=== PATIENT | female | born 1940 | race Caucasian/White ===

== ENCOUNTER → 2017-09-28 13:47 | Outpatient (REF) | payer MEDICARE, SELFPAY | LOC: LAB 13:47 | PROVIDERS: Visit Provider Emergency Medicine | DX: N39.0 Urinary tract infection, site not specified (principal) | CPT/HCPCS: 87086 ==

== ENCOUNTER → 2017-10-29 10:16 | Outpatient (CLI) | payer MEDICARE, SELFPAY | PROVIDERS: Visit Provider Emergency Medicine | DX: R53.83 Other fatigue (principal) | CPT/HCPCS: 87086 ==

== ENCOUNTER → 2017-11-16 14:18 | Outpatient (REF) | payer MEDICARE, SELFPAY | LOC: LAB 14:18 | PROVIDERS: Visit Provider Physician Assistant | DX: R30.0 Dysuria (principal) | CPT/HCPCS: 87086 ==

== ENCOUNTER → 2017-11-19 11:07 | Outpatient (CLI) | payer MEDICARE, SELFPAY | PROVIDERS: Visit Provider Nurse Practitioner Family | DX: R30.0 Dysuria (principal) | CPT/HCPCS: 87086 ==

== ENCOUNTER → 2017-11-30 07:24 | Outpatient (CLI) | payer MEDICARE, SELFPAY ==
--- NOTE | 2017-11-30 07:27 | XR_ITS ---
XR chest 2V HISTORY: ITS.REASON: Cough, night sweats ORDERING PHYSICIAN: CELINE Flores PATIENT AGE: 77 years COMPARISON: 07/07/2016 FINDINGS: The cardiomediastinal silhouette and pulmonary vascularity are within normal limits. There is some patchy density present in the right lower lobe consistent with right lower lobe pneumonia. There is also some patchy density in the right midlung which may be due to small area of infiltrate. The left lung has an unremarkable appearance. No acute bony anomalies. IMPRESSION: Right mid lung and right lower lobe pneumonia
[2017-11-30 08:43] LABS: Basophils % 0.4 % (0.1-2.0); Eosinophils # 0.2 K/mm3 (0.0-0.4); Eosinophils % 2.8 % (0.1-12.0); Hematocrit 42.1 % (37.0-47.0); Hemoglobin 13.1 g/dL (12.2-16.2); Lymphocytes # 2.5 K/mm3 (0.7-4.5); Lymphocytes % 31.9 K/mm3 (10-50); Mean Corpuscular HGB Conc 31.1 g/dL (31.8-35.4); Mean Corpuscular Hemoglobin 28.9 pg (27.0-31.2); Mean Corpuscular Volume 92.8 fl (81-99); Monocytes # 0.5 K/mm3 (0.1-1.0); Neutrophils # 4.7 K/mm3 (1.8-7.8); Platelet Count 533 K/mm3 (142-424); Red Blood Count 4.54 M/mm3 (4.20-5.40); Red Cell Distribution Width 13.2 % (11.5-17.5); White Blood Count 7.9 K/mm3 (4.8-10.8)
[2017-11-30 09:11] LABS: Alanine Aminotransferase 15 U/L (12-78); Albumin Level 3.5 gm/dL (3.4-5.0); Albumin/Globulin Ratio 0.9 (1.1-1.8); Alkaline Phosphatase 84 U/L (46-116); Anion Gap 14.6 mEq/L (5-15); Aspartate Amino Transferase 14 U/L (15-37); Bilirubin,Total 0.3 mg/dL (0.2-1.0); Blood Urea Nitrogen 16 mg/dL (7-18); C-Reactive Protein 1.2 mg/L (0.0-0.9); Calcium 9.5 mg/dL (8.5-10.1); Carbon Dioxide 29 mmol/L (21.0-32.0); Chloride 104 mmol/L (98-107); Chol/HDL Ratio 4.3 (1-3.5); Cholesterol 180 mg/dL (140-200); Creatinine,Serum 0.73 mg/dL (0.55-1.02); Estimated Glomerular Filt Rate 78 ml/min (>60); Free T4 (Free Thyroxine) 0.95 ng/dl (0.76-1.46); GFR (African American) 94 ML/MIN (>60); Globulin 4.1 gm/dl (1.3-3.2); HDL Cholesterol 42 mg/dL (29-89); LDL Cholesterol 107 mg/dL (0-130); Potassium 4.6 mmoL/L (3.5-5.1); Sodium 143 mmol/L (136-145); Thyroid Stimulating Hormone 4.57 uIU/ml (0.358-3.740); Total Protein,Serum 7.6 gm/dL (6.4-8.2); Triglycerides 153 mg/dL (30-200); VLDL Cholesterol 31 mg/dL (0-40)
[2017-11-30 09:17] LABS: Glucose 112 mg/dL (74-106)
[2017-11-30 09:57] LABS: Erythrocyte Sedimentation Rate > 120 mm/hr (0-30)
== END ==
PROVIDERS: PCP Physician Assistant; Visit Provider Physician Assistant
DX: R05 Cough (principal); R61 Generalized hyperhidrosis; Z79.899 Other long term (current) drug therapy
CPT/HCPCS: 36415; 71046; 80053; 80061; 84439; 84443; 85025; 85651; 86140

== ENCOUNTER → 2017-11-30 16:08 | Outpatient (CLI) | payer MEDICARE, SELFPAY ==
[2017-12-02 16:58] LABS: Peripheral Smear Review Scanned Result
== END ==
PROVIDERS: Visit Provider Physician Assistant
DX: R05 Cough (principal)

== ENCOUNTER → 2017-12-21 07:08 | Outpatient (CLI) | payer MEDICARE, SELFPAY ==
--- NOTE | 2017-12-21 07:11 | XR_ITS ---
XR chest 2V HISTORY: Cough ITS.REASON: f/u pneumonia ORDERING PHYSICIAN: CELINE Flores PATIENT AGE: 77 years COMPARISON: PA and lateral chest 11/30/2017 FINDINGS: The cardiomediastinal silhouette and pulmonary vascularity are within normal limits. The minimal pneumonic infiltrate seen in the right perihilar region and right lower lobe on the previous study have resolved. Both lung culp are clear to this time. There is no pleural fluid. IMPRESSION: Negative chest, no acute finding
[2017-12-21 07:43] LABS: Basophils % 0.5 % (0.1-2.0); Eosinophils # 0.2 K/mm3 (0.0-0.4); Eosinophils % 3.7 % (0.1-12.0); Hematocrit 41.9 % (37.0-47.0); Hemoglobin 13.5 g/dL (12.2-16.2); Lymphocytes # 2.2 K/mm3 (0.7-4.5); Lymphocytes % 35.6 K/mm3 (10-50); Mean Corpuscular HGB Conc 32.2 g/dL (31.8-35.4); Mean Corpuscular Hemoglobin 30.1 pg (27.0-31.2); Mean Corpuscular Volume 93.5 fl (81-99); Mean Platelet Volume 6.8 fl (7.4-10.4); Monocytes # 0.5 K/mm3 (0.1-1.0); Monocytes % 8.7 % (1.7-9.3); Neutrophils # 3.2 K/mm3 (1.8-7.8); Neutrophils % 51.4 % (37.0-80.0); Platelet Count 284 K/mm3 (142-424); Red Blood Count 4.48 M/mm3 (4.20-5.40); Red Cell Distribution Width 14.4 % (11.5-17.5); White Blood Count 6.2 K/mm3 (4.8-10.8)
[2017-12-21 08:08] LABS: Alanine Aminotransferase 15 U/L (12-78); Albumin Level 3.9 gm/dL (3.4-5.0); Albumin/Globulin Ratio 1.1 (1.1-1.8); Alkaline Phosphatase 85 U/L (46-116); Anion Gap 13.4 mEq/L (5-15); Aspartate Amino Transferase 8 U/L (15-37); Bilirubin,Total 0.5 mg/dL (0.2-1.0); Blood Urea Nitrogen 15 mg/dL (7-18); Calcium 9.5 mg/dL (8.5-10.1); Carbon Dioxide 29 mmol/L (21.0-32.0); Chloride 107 mmol/L (98-107); Creatinine,Serum 0.71 mg/dL (0.55-1.02); Estimated Glomerular Filt Rate 80 ml/min (>60); GFR (African American) 97 ML/MIN (>60); Globulin 3.5 gm/dl (1.3-3.2); Potassium 4.4 mmoL/L (3.5-5.1); Sodium 145 mmol/L (136-145); Total Protein,Serum 7.4 gm/dL (6.4-8.2)
[2017-12-21 08:21] LABS: C-Reactive Protein < 0.2 mg/L (0.0-0.9)
[2017-12-21 08:22] LABS: Glucose 93 mg/dL (74-106)
[2017-12-21 08:37] LABS: Erythrocyte Sedimentation Rate 48 mm/hr (0-30)
== END ==
PROVIDERS: PCP Physician Assistant; Visit Provider Physician Assistant
DX: R70.0 Elevated erythrocyte sedimentation rate (principal); J18.9 Pneumonia, unspecified organism
CPT/HCPCS: 36415; 71046; 80053; 85025; 85651; 86140

== ENCOUNTER → 2018-01-14 06:11 | Outpatient (CLI) | payer MEDICARE, SELFPAY ==
--- NOTE | 2018-01-14 06:12 | CA_ITS ---
PROCEDURE: 2-D M-mode and color Doppler study INDICATIONS FOR THE TEST: Chest pain COPD+ Heart Murmur Tobacco Smokingex Palpitations Fatigue+ Syncope+ Edema Hypertension+Diabetes Mellitus Rheumatic Fever SOB+CAMPBELL+Obesity Hyperlipidemia+ Family History HD+ Additional History dizziness PATIENT INFORMATION HEIGHT: 63 WEIGHT: 183 GENDER: Female B/P: 183/80 2-D/M-MODE INTERPRETATION: 2-D MEASUREMENTS OBSERVED VALUES IN CMS Right Ventricular Dimension (RVDd) 2.1 Interventricular Septum (Thickness)(IVsd) 1.1 Left Ventricular Internal Dimensions(LVIDd) 4.7 Left Ventricular Posterior Wall (Thickness)(LVPWd) 1.0 Aortic Root 2.7 Aortic Cusp Separation 2.5 Left Atrial Dimensions (LAD) 3.6 2D 1. Left atrium is mildly enlarged, left ventricle is normal size, mild concentric left ventricular hypertrophy, visually estimated ejection fraction 55% with no obvious regional wall motion abnormality. 2. The right atrium and right ventricle are normal size and contractility. 3. The aortic valve is minimally thickened and fibrosed. 4. The mitral and tricuspid valve are grossly normal. 5. The pulmonic valve is poorly visualized. 6. No significant pericardial effusion noted. DOPPLER INTERROGATION: Doppler interrogation of the aortic, mitral and tricuspid valvular presence of mild mitral and tricuspid regurgitation, tricuspid regurgitant jet velocity is insufficient for calculation of the right ventricular systolic pressure, grade 1 diastolic dysfunction seen with tissue Doppler evidence of raised left atrial pressure. CONCLUSION: 1. Mildly enlarged left atrium, normal left ventricular size, mild concentric left ventricular hypertrophy, visually estimated ejection fraction of 55% with no obvious regional wall motion abnormality, grade 1 diastolic dysfunction seen with tissue Doppler evidence of raised left atrial pressure. 2. Mild mitral and tricuspid regurgitation 3. No significant pericardial effusion noted.
--- NOTE | 2018-01-14 06:12 | CT_ITS ---
CT chest wo con HISTORY: Chest pain, syncope, shortness of air ITS.REASON: . ORDERING PHYSICIAN: Hector Beavers MD PATIENT AGE: 77 years COMPARISON: None Technique: Axial images obtained with sagittal and coronal reformats. All CT scans at the facility use one or more dose reduction, viz: automated exposure control, ma/kV adjustment per patient size (including targeted exams where dose is matched to indication, i.e. head), or iterative reconstruction technique. FINDINGS: There is diffuse coronary artery calcification. There is only minimal thickening of the pericardium. Normal heart size. No evidence of aortic aneurysm. Calcific plaque involves the aortic arch. No mediastinal or hilar mass or adenopathy. There is mild coarsening of bronchovascular markings with several small subpleural opacities which are nonspecific. A small patchy subpleural areas of groundglass density is present in the right upper lobe anterolaterally. Small blebs are present in the right upper lobe. There is some patchy groundglass density in the right lower lobe laterally and posteriorly. There is some mild thickening of interlobular septa the lung bases with minimal prominence of the interstitium. Mild biapical fibronodular changes on the left. No suspicious pulmonary nodules. No effusions. Small blebs are also present in the left lung base Upper abdominal images shows an 8 mm isodensity right hepatic lobe laterally and a 4 mm isodensity right hepatic lobe anteriorly. No acute bony anomalies. IMPRESSION: 1. Coarsened bronchovascular markings with mild interlobular septal thickening in the lung bases and scattered patchy groundglass densities. These findings may be seen with chronic interstitial pneumonitis for which the differential diagnosis is vast. 2. Coronary artery disease.
--- NOTE | 2018-01-14 06:12 | CI_ITS ---
Cerebrovascular Exam IMPRESSIONS 1. The bilateral vertebral arteries are patent with normal antegrade flow. 2. Study suggests less than 20% stenosis involving the right internal carotid artery. 3. Study suggests less than 20% stenosis involving the left internal carotid artery. History: A bruit of the left carotid artery. A bruit of the right carotid artery. Risk factors: Hypertension. Hyperlipidemia. Carotid duplex study. Complete study and Doppler flow study including spectral analysis, color and zarco scale imaging. Location: Vascular laboratory. Patient status: Outpatient. Tables: Arterial flow: + +--------+--------+ Location V sys V ed + +--------+--------+ Right CCA - proximal 76.1cm/s 17.5cm/s + +--------+--------+ Right CCA - distal 71.9cm/s 19.6cm/s + +--------+--------+ Right ECA 92.9cm/s -------- + +--------+--------+ Right ICA - proximal 50.1cm/s 15.2cm/s + +--------+--------+ Right ICA - mid 89.9cm/s 33.3cm/s + +--------+--------+ Right ICA - distal 67.4cm/s 24.4cm/s + +--------+--------+ Right vertebral 41.7cm/s -------- + +--------+--------+ Left CCA - proximal 95.1cm/s 18.9cm/s + +--------+--------+ Left CCA - distal 68.4cm/s 16.5cm/s + +--------+--------+ Left ECA 129cm/s -------- + +--------+--------+ Left ICA - proximal 47.1cm/s 13.2cm/s + +--------+--------+ Left ICA - mid 67.2cm/s 20.5cm/s + +--------+--------+ Left ICA - distal 93.2cm/s 27.9cm/s + +--------+--------+ Left vertebral 43.2cm/s -------- + +--------+--------+ Velocity ratios: + + + + + + Right, V sys Right, V ed Left, V sys Left, V ed + + + + + + Max ICA/dist CCA 1.25 1.7 1.36 1.69 + + + + + + (Report amended ) Electronically signed by: Emmanuel Kiser [id number]
--- NOTE | 2018-01-14 06:12 | NM_ITS ---
History and Indications: Hypertension, hyperlipidemia, family history, shortness of breath syncope and fatigue Procedure: Patient received a 0.4 mg of Lexiscan, resting heart rate was 87 bpm resting blood pressure 161/74, with Lexiscan maximum heart rate achieved was 1 15 bpm which is less than 85% of the maximum predicted heart rate and a blood pressure was 186/72. With Lexiscan patient complained of shortness of breath requiring intravenous Aminophyllin to reverse symptoms. Electrocardiogram: Resting electrocardiogram showed sinus rhythm, with Lexiscan less than 1.[address] segment depression noted from the baseline EKG. The EKG portion of the Lexiscan Myoview is nondiagnostic. Cardiac stress and resting SPECT images: Cardiac stress and rest SPECT images were obtained using technetium 99 Myoview 31.5 mCi at stress and 10.3 mCi at rest. Gated SPECT further analysis of segmental wall motion and calculation of the ejection fraction also done. Cardiac stress and resting SPECT images show uniform myocardial activity, computer derived ejection fraction is over 65% with no obvious regional wall motion abnormality, right ventricle is normal size and contractility. Conclusion: 1. The EKG portion of the Lexiscan Myoview is nondiagnostic. 2. No obvious scintigraphic evidence of reversible ischemia seen, computer derived ejection fraction is over 65% with no obvious regional wall motion abnormality, right ventricle is normal size and contractility. 3. Normal Lexiscan Myoview study.
--- NOTE | 2018-01-14 10:38 | HMH.ITSHM ---
lisinopril asa bisoprolol levothyroxine rosuvastatin
== END ==
PROVIDERS: Family Provider Emergency Medicine; PCP Physician Assistant; Visit Provider Internal Medicine Cardiovascular Disease
DX: R55 Syncope and collapse (principal); R94.31 Abnormal electrocardiogram [ECG] [EKG]; R42 Dizziness and giddiness; R06.09 Other forms of dyspnea; R00.0 Tachycardia, unspecified; I10 Essential (primary) hypertension
CPT/HCPCS: 71250; 78452; 93017; 93306; 93880; A9502; J2785

== ENCOUNTER → 2018-01-21 07:31 | Outpatient (CLI) | payer MEDICARE, SELFPAY ==
[2018-01-21 07:57] LABS: Basophils % 0.4 % (0.1-2.0); Eosinophils # 0.2 K/mm3 (0.0-0.4); Eosinophils % 3.8 % (0.1-12.0); Hemoglobin 12.8 g/dL (12.2-16.2); Lymphocytes # 1.8 K/mm3 (0.7-4.5); Lymphocytes % 34.6 K/mm3 (10-50); Mean Corpuscular HGB Conc 32.1 g/dL (31.8-35.4); Mean Corpuscular Hemoglobin 29.7 pg (27.0-31.2); Mean Corpuscular Volume 92.5 fl (81-99); Mean Platelet Volume 7.2 fl (7.4-10.4); Monocytes # 0.5 K/mm3 (0.1-1.0); Monocytes % 9.8 % (1.7-9.3); Neutrophils # 2.7 K/mm3 (1.8-7.8); Neutrophils % 51.5 % (37.0-80.0); Platelet Count 307 K/mm3 (142-424); Red Blood Count 4.32 M/mm3 (4.20-5.40); Red Cell Distribution Width 14.2 % (11.5-17.5); White Blood Count 5.3 K/mm3 (4.8-10.8)
[2018-01-21 08:15] LABS: C-Reactive Protein 0.4 mg/L (0.0-0.9)
[2018-01-21 12:32] LABS: Erythrocyte Sedimentation Rate 54 mm/hr (0-30)
== END ==
PROVIDERS: Physician Assistant; PCP Emergency Medicine; Visit Provider Emergency Medicine
DX: R70.0 Elevated erythrocyte sedimentation rate (principal)
CPT/HCPCS: 36415; 85025; 85651; 86140

== ENCOUNTER 2018-05-12 10:12 | Outpatient (RCR) | payer MEDICARE, SELFPAY | END 2018-08-24 08:54 | disposition home or self-care (01) | LOC: PT 10:12 | PROVIDERS: Visit Provider Internal Medicine | DX: Z95.5 Presence of coronary angioplasty implant and graft (principal) | CPT/HCPCS: 93798 ==

== ENCOUNTER → 2018-05-26 15:04 | Outpatient (CLI) | payer MEDICARE, SELFPAY | PROVIDERS: PCP Emergency Medicine; Visit Provider Urology | DX: M79.601 Pain in right arm (principal); E03.9 Hypothyroidism, unspecified; E78.5 Hyperlipidemia, unspecified; I25.10 Atherosclerotic heart disease of native coronary artery without angina pectoris; I51.9 Heart disease, unspecified; I65.29 Occlusion and stenosis of unspecified carotid artery; J44.9 Chronic obstructive pulmonary disease, unspecified; R06.00 Dyspnea, unspecified; R42 Dizziness and giddiness; R94.31 Abnormal electrocardiogram [ECG] [EKG]; I77.1 Stricture of artery | CPT/HCPCS: 93931 ==

== ENCOUNTER → 2018-06-09 06:55 | Outpatient (CLI) | payer MEDICARE, SELFPAY ==
[2018-06-09 07:28] LABS: Alanine Aminotransferase 15 U/L (12-78); Albumin Level 3.7 gm/dL (3.4-5.0); Alkaline Phosphatase 67 U/L (46-116); Aspartate Amino Transferase 16 U/L (15-37); Bilirubin,Direct 0.2 mg/dL (0.0-0.2); Bilirubin,Indirect 0.4 mg/dL (0.0-0.9); Bilirubin,Total 0.6 mg/dL (0.2-1.0); Chol/HDL Ratio 2.9 (1-3.5); Cholesterol 126 mg/dL (140-200); HDL Cholesterol 44 mg/dL (29-89); LDL Cholesterol 48 mg/dL (0-130); Total Protein,Serum 7.7 gm/dL (6.4-8.2); Triglycerides 172 mg/dL (30-200); VLDL Cholesterol 34 mg/dL (0-40)
== END ==
PROVIDERS: PCP Emergency Medicine; Visit Provider Internal Medicine Cardiovascular Disease
DX: I65.29 Occlusion and stenosis of unspecified carotid artery (principal); E78.5 Hyperlipidemia, unspecified; I25.118 Atherosclerotic heart disease of native coronary artery with other forms of angina pectoris
CPT/HCPCS: 36415; 80061; 80076

== ENCOUNTER → 2018-09-14 08:30 | Outpatient (CLI) | payer MEDICARE, SELFPAY ==
[2018-09-14 10:09] LABS: Anion Gap 11.4 mEq/L (5-15); Blood Urea Nitrogen 20 mg/dL (7-18); Calcium 9.6 mg/dL (8.5-10.1); Carbon Dioxide 29 mmol/L (21.0-32.0); Chloride 105 mmol/L (98-107); Creatinine,Serum 0.75 mg/dL (0.55-1.02); Estimated Glomerular Filt Rate 75 ml/min (>60); GFR (African American) 91 ML/MIN (>60); Glucose 103 mg/dL (74-106); Potassium 4.4 mmoL/L (3.5-5.1); Sodium 141 mmol/L (136-145)
== END ==
PROVIDERS: Visit Provider Internal Medicine Cardiovascular Disease
DX: E78.5 Hyperlipidemia, unspecified (principal); I10 Essential (primary) hypertension; I25.118 Atherosclerotic heart disease of native coronary artery with other forms of angina pectoris; I51.89 Other ill-defined heart diseases; I65.29 Occlusion and stenosis of unspecified carotid artery; R06.09 Other forms of dyspnea
CPT/HCPCS: 36415; 80048

== ENCOUNTER → 2018-11-24 10:21 | Outpatient (CLI) | payer MEDICARE, SELFPAY ==
--- NOTE | 2018-11-24 10:22 | MM_ITS ---
MM Dig screening mamm BI w/CAD ORDERING PHYSICIAN : Linwood Payton APRN PATIENT AGE: 78 years GENDER: Female COMPARISON: December 2010, September 2015, INDICATION: ITS.Routine Screening mammogram. No hormones. No new complaints. Family history.: Sibling sister with breast cancer age 60 postmenopausal TECHNIQUE: Standard CC and MLO images were obtained. R2 CAD reviewed. Additional nipple profile cc views bilateral FINDINGS: ...... . Lower density breast with Minimal residual fibroglandular elements. Generalized fatty replacement . No dominant mass nor suspicious calcifications, either breast. Similar appearance and architecture to previous studies. No significant new findings. Bilateral follow-up one year recommended. All with numerous follicles Partially inverted nipples bilaterally again noted Minimal vascular calcifications bilaterally again noted. Of No concern IMPRESSION: ......... Stable bilateral mammogram No areas of concern.. Moderate fatty replacement bilateral . Bilateral follow-up one year BI-RADS Category: 1 Negative RECOMMENDED FOLLOW-UP: 1YR 1 YEAR FOLLOW-UP (A letter has been sent to the patient regarding results of the study.)
== END ==
PROVIDERS: PCP Emergency Medicine; Visit Provider Nurse Practitioner Family
DX: Z12.31 Encounter for screening mammogram for malignant neoplasm of breast (principal)
CPT/HCPCS: 77067

== ENCOUNTER → 2019-02-14 09:49 | Outpatient (POV) | payer MEDICARE, SELFPAY | PROVIDERS: Visit Provider Otolaryngology | DX: Z00.00 Encounter for general adult medical examination without abnormal findings (principal) ==

== ENCOUNTER → 2019-10-05 10:37 | Outpatient (CLI) | payer MEDICARE, SELFPAY ==
[2019-10-05 13:14] LABS: Chloride 104 mmol/L (98-107); Potassium 4.3 mmoL/L (3.5-5.1); Sodium 140 mmol/L (136-145)
[2019-10-05 13:17] LABS: Alanine Aminotransferase 12 U/L (12-78); Albumin Level 4.3 g/dl (3.5-5.0); Alkaline Phosphatase 60 U/L (38-126); Anion Gap 13.3 mEq/L (5-15); Aspartate Amino Transferase 23 U/L (14-36); Bilirubin,Indirect 0.4 mg/dL (0.0-0.9); Bilirubin,Total 0.4 mg/dl (0.2-1.3); Bilirubin,Unconjugated 0.6 mg/dL (0.0-1.1); Blood Urea Nitrogen 15 mg/dl (7-17); Calcium 9.9 mg/dl (8.4-10.2); Carbon Dioxide 27 mmol/L (22.0-30.0); Cholesterol 129 mg/dl (140-200); Estimated Glomerular Filt Rate 97 ml/min (>60); GFR (African American) 117 ML/MIN (>60); Glucose 121 mg/dl (74-100); Triglycerides 288 mg/dl (30-150); VLDL Cholesterol 58 mg/dL (0-40)
[2019-10-05 13:18] LABS: Chol/HDL Ratio 2.6 (1-3.5); HDL Cholesterol 49 mg/dl (40-60)
[2019-10-05 13:26] LABS: NT Pro Brain Natriuretic Pep. 77.6 pg/mL (0-450)
[2019-10-05 13:29] LABS: Direct LDL Cholesterol 67.49 mg/dL (100-129)
== END ==
PROVIDERS: Visit Provider Internal Medicine Cardiovascular Disease
DX: R06.00 Dyspnea, unspecified; E78.5 Hyperlipidemia, unspecified; I10 Essential (primary) hypertension; I25.10 Atherosclerotic heart disease of native coronary artery without angina pectoris; I65.29 Occlusion and stenosis of unspecified carotid artery; R06.83 Snoring; R40.0 Somnolence
CPT/HCPCS: 36415; 80048; 80061; 80076; 83880

== ENCOUNTER → 2019-10-12 13:27 | Outpatient (CLI) | payer MEDICARE, SELFPAY | PROVIDERS: PCP Emergency Medicine; Visit Provider Internal Medicine Cardiovascular Disease | DX: G47.30 Sleep apnea, unspecified (principal); R06.00 Dyspnea, unspecified; R06.83 Snoring; R40.0 Somnolence | CPT/HCPCS: G0399 ==

== ENCOUNTER → 2019-10-20 07:02 | Outpatient (CLI) | payer MEDICARE, SELFPAY ==
--- NOTE | 2019-10-20 07:03 | CA_ITS ---
APPROVED REPORT EXAM: Comprehensive 2D, Doppler, and color-flow Echocardiogram Flaking Roll Operator: Chayito Peterson CRT Ht: 5 ft 1 in Wt: 197lbs BSA: 1.88 BP: 160/60 mmHg Indications: COPD, FATIGUE, SYNCOPE, HTN, HLD, CAD,SOB 2D Dimensions LVOT 1.69 cm (M/F) 1.5-2.5 M-Mode Dimensions RVDd 2.32 cm (0.9-2.6) LVDd 4.37 cm (3.5-5.7) LVDs 3.38 cm (3.5-5.7) IVSd 1.56 cm (0.6-1.1) PWd 0.72 cm (0.6-1.1) EF (Teich) 45.80% FS 22.70% EDV (Teich) 86.30 mL ESV (Teich) 46.80 mL LV Diastology E/A Ratio 0.67 Mitral Valve MV A Velocity 62.00 (40-130 cm/s) Left Ventricle Left atrium is mildly enlarged, left ventricle is normal size, mild concentric left ventricular hypertrophy, visually estimated ejection fraction 55% with no regional wall motion abnormality, grade 1 diastolic dysfunction seen without tissue Doppler evidence of raise left atrial pressure. Right Ventricle Right atrium and right ventricular mildly enlarged with normal contractility. Aortic Valve Aortic valve is minimally thickened and fibrosed. There is no aortic stenosis aortic insufficiency. Mitral Valve Mitral valve is grossly normal, there is no mitral stenosis or mitral regurgitation. Tricuspid Valve Tricuspid valve is grossly normal, there is mild tricuspid regurgitation, tricuspid regurgitation jet velocity is inadequate for calculation of the right ventricular systolic pressure. Pulmonic Valve Pulmonic valve is poorly visualized. Great Vessels Aortic root is normal size. Pericardium No significant pericardial effusion noted. Conclusion 1. Mild biatrial enlargement, normal left ventricular size, mild concentric left ventricular hypertrophy, visually estimated ejection fraction 55% with no regional wall motion abnormality, grade 1 diastolic dysfunction seen without tissue Doppler evidence of raise left atrial pressure. 2. Mildly enlarged right ventricle with normal contractility. 3. Mild mitral and tricuspid regurgitation. 4. No significant pericardial effusion noted. Electronically signed by : Hector Beavers, 10/20/2019 13:00:46
--- NOTE | 2019-10-20 07:03 | CA_ITS ---
APPROVED REPORT Exam: Pharmacologic Technologist: Gracia Pruitt, Ht: 5 ft 1 in Wt: 189 lbs BSA: 1.84 m2 Indications: SOA/HTN/CAD Medical History Medications: Lisinopril,,,,, Levothyroxine,,,,, Isosorbide,,,,, Aspirin,,,,, Metoprolol,,,,, FluTICASONE,,,,, SpirOnolactone,,,,, RoSUVASTATIN,,,,, Clobetasol,,,,, Clobetasol,,,,, MonONITRATE,,,,, Stress Test Details Test: LEXISCAN Reason for pharmacologic stress test: physical limitation. HR Resting HR: 106 bpm Max Heart Rate (APMHR): 142 bpm Max HR Achieved: 135 bpm Target HR (85% APMHR): 120 bpm % of APMHR: 95 BP Resting BP: 158/68 mmHg Max BP: 181/62 mmHg ECG Clinical Reason for Termination: Completed Protocol Exercise duration: 04:09 min Highest Stage Achieved: Stress ECG Conclusion no CP / SOA no arrhythmias <1.5mm ST segment changes non-diagnostic Test Summary RECOVERY 03:00 . . 116 . 181/ 62 . . Stage 1 01:00 . . 125 . . . . Stage 2 01:00 . . 131 . . . . Stage 3 01:00 . . 128 . 127/107 . . Stage 4 01:00 . . 124 . . . . Stage 4 01:09 . . 122 . . . Stop exercise at 04:09 RECOVERY 01:00 . . 115 . . . . RECOVERY 02:00 . . 117 . 180/ 70 . . RECOVERY 03:00 . . 116 . 181/ 62 . . RECOVERY 04:00 . . 114 . 181/ 62 . . RECOVERY 05:00 . . 0 . 181/ 62 . . RECOVERY 05:27 . . 0 . 181/ 62 . . Electronically signed by : Hector Beavers, 10/20/2019 11:52:12
--- NOTE | 2019-10-20 07:03 | NM_ITS ---
APPROVED REPORT Exam: Nuclear Stress Test Indication: HTN, D.M., HYPERLIPIDEMIA, FM HX., FATIGUE, ABN EKG Patient Location: Outpatient Stress Tech: Gracia Pruitt MT Tech:DAIJA Antonio RT (R)(N)(M) Ht: 5 ft 1 in Wt: 235 lbs Bra Size: 44DDD HR: 62 bpm BP: 131/75 mmHg BSA: 2.02 m2 BMI: 44.3 History: HTN, D.M., HYPERLIPIDEMIA, FM HX., FATIGUE, ABN EKG Procedure: Patient received a 0.4 mg of intravenous Lexiscan, resting heart rate 62 bpm, resting blood pressure 131/75 mmHg, with Lexiscan maximum heart rate achived was 89 bpm which is Less than 85 % of the maximum predicted heart rate and blood pressure was 116/69 mmHg. With Lexiscan, patient denied any complaint of chest pain. Electrocardiogram Resting electrocardiogram showed sinus rhythm, with Lexiscan there is less than 1.[address] segment depression noted from the baseline EKG. The EKG portion of the Lexiscan Myoview is nondiagnostic. Cardiac Stress and Resting SPECT Images: Cardiac Stress and Resting SPECT images were obtained using technetium 99m Myoview 30.9 mCi stress and 10.37 mCi at rest. Gated SPECT with analysis of segmental wall motion and calculation of the ejection fraction also done. Cardiac stress and resting SPECT images show decrease tracer activity in the inferolateral wall which improves on the resting images suggestive of reversible ischemia, there is transient ischemic dilatation of the left ventricle seen, raising the concerns for multivessel coronary artery disease. Computer derived ejection fraction is over 65% with no regional wall motion abnormality, right ventricle is normal size and contractility. Conclusion: 1. The EKG portion of the Lexiscan Myoview is nondiagnostic. 2. Scintigraphic evidence of mild reversible ischemia involving the inferolateral wall, there is transient ischemic dilatation of the left ventricle seen raising the concerns for presence of multivessel coronary artery disease. Computer derived ejection fraction is over 65% with no regional wall motion abnormality, right ventricle is normal size and contractility. 3. Abnormal Lexiscan Myoview study. Electronically signed by : Hector Beavers, 10/20/2019 11:55:08
== END ==
PROVIDERS: PCP Emergency Medicine; Visit Provider Nurse Practitioner Family
DX: E78.5 Hyperlipidemia, unspecified (principal); I10 Essential (primary) hypertension; I25.10 Atherosclerotic heart disease of native coronary artery without angina pectoris; I65.29 Occlusion and stenosis of unspecified carotid artery; R06.00 Dyspnea, unspecified; R06.83 Snoring; R40.0 Somnolence; R06.02 Shortness of breath
CPT/HCPCS: 78452; 93017; 93306; A9502; J2785

== ENCOUNTER 2019-10-30 08:36 | Day surgery (SDC) | payer MEDICARE, SELFPAY ==
[2019-10-30] VITALS (12 sets, daily range): BP systolic 84–152; BP diastolic 35–67; PULSE 79–98; RESP 16–20; TEMP 36.9; O2SAT 93–96; BMI 34.5
[2019-10-30 09:29] LABS: Basophils % 0.6 % (0.1-2.0); Eosinophils # 0.2 K/mm3 (0.0-0.4); Eosinophils % 2.9 % (0.1-12.0); Lymphocytes # 1.6 K/mm3 (0.7-4.5); Lymphocytes % 25.2 % (10-50); Mean Corpuscular HGB Conc 34.3 g/dL (31.8-35.4); Mean Corpuscular Hemoglobin 31.8 pg (27.0-31.2); Mean Corpuscular Volume 92.7 fl (81-99); Mean Platelet Volume 7.4 fl (7.4-10.4); Monocytes # 0.5 K/mm3 (0.1-1.0); Monocytes % 7.4 % (1.7-9.3); Neutrophils % 63.8 % (37.0-80.0); Platelet Count 258 K/mm3 (142-424); Red Cell Distribution Width 14.1 % (11.5-17.5); White Blood Count 6.2 K/mm3 (4.8-10.8)
[2019-10-30 09:35] LABS: Blood Urea Nitrogen 16 mg/dl (7-17); Calcium 10.2 mg/dl (8.4-10.2); Carbon Dioxide 24 mmol/L (22.0-30.0); Chloride 104 mmol/L (98-107); Creatinine Clearance Estimated 65 mL/min (50-200); Estimated Glomerular Filt Rate 97 ml/min (>60); GFR (African American) 117 ML/MIN (>60); Glucose 127 mg/dl (74-100); Sodium 138 mmol/L (136-145)
--- NOTE | 2019-10-30 11:00 | IR_ITS ---
APPROVED REPORT Patient Location: Outpatient Project Management Professor: DAIJA Martin RT (R) PROCEDURES Right heart catheterization Left heart catheterization Left ventriculogram Selective coronary angiogram Drug-eluting stent deployment in the mid left main artery extending into the proximal dominant circumflex artery INDICATION Pulmonary hypertension, High risk abnormal Myoview, Angina pectoris class III and IV, Coronary artery disease Informed consent was obtained prior to the procedure. COMPLICATIONS NONE Estimated Blood Loss: LESS THAN 10 ML TECHNIQUE One percent lidocaine was used to anesthetize the right anterior aspect of the right wrist. The right radial artery was accessed via the Seldinger technique and a 6 [place] hydrophilic sheath was placed in the right radial artery. Following this one percent lidocaine was used to anesthetize the right anterior aspect of the right neck. The right internal jugular vein was accessed via the Seldinger technique and a 7 [place] sheath was placed in the right internal jugular vein. Following this an arterial cocktail was administered using 5000U heparin, 2.5 mg verapamil, 1mg Lidocaine and 800mcg nitroglycerin into the right radial sheath. A trap catheter was used to perform left heart catheterization left ventriculogram and selective coronary angiography while a [place]-Hugh catheter was used to perform right heart catheterization. Saturations were obtained in the pulmonary artery and right atrium. At the end the diagnostic angiogram therapeutic heparin was administered and and I Nicolle left guide catheter was used to intubate the left main artery. A Choice PT extra-support wire was placed in the circumflex artery where a 3.5 x 15 mm resolute tyson stent was placed in the left main artery extending into the proximal circumflex artery and deployed at 20 tiana. Excellent EARL-3 flow was present before and after the procedure. Because there was no angiographic encroachment upon the widely patent LAD it was decided not to instrument the LAD and not take a chance on having to place bifurcating stents in the LAD circumflex artery. Following the revascularization the right heart catheterization was then performed as described above. At the end of the procedure the sheath was removed good hemostasis was achieved using TR banding patient was transferred to the postop holding area in stable condition. ANGIOGRAPHIC RESULTS The left main artery Has a distal eccentric 40% stenosis The left anterior descending artery Has ostial proximal and mid vessel 10% luminal irregularities The circumflex artery Is a dominant vessel and has an ostial 90% stenosis which extends off the 30% distal left main stenosis the mid vessel has an additional eccentric 30% stenosis The right coronary artery Is a large codominant vessel and has diffuse 20% and distal 20% stenoses The NATARAJAN ventriculogram reveals Hyperdynamic 75% The left ventricular end-diastolic pressure 20 mmHg Right atrial pressure 10 mmHg Pulmonary artery pressure 32/20 mmHg Pulmonary artery occlusion pressure 20 mmHg Right atrial saturation 77% Pulmonary artery saturation 77% IMPRESSION Severe stenosis in the ostial dominant circumflex artery which extended off the distal left main stenosis as described above Successful stenting of the mid left main artery extending into the proximal dominant circumflex artery reducing the severe stenosis to 0% Mild pulmonary hypertension Moderately elevated left-sided filling pressures consistent with diastolic dysfunction and hyperdynamic left ventricle PLAN 1. Brilinta and aspirin 2. LDL less than 55 3. Cardiac rehabilitation 4. Patient is a hyperdynamic ventricle and needs ne
[2019-10-30 13:07] LABS: CATHL Activated Clotting Time 273 SEC (74-125); CATHL Arterial O2 SAT 77.8 % (90-100)
[2019-10-30 13:08] LABS: CATHL Venous O2 SAT 77.6 % (75-80)
--- NOTE | 2019-10-30 13:54 | HMH.PHACLD ---
Batool Mario has received discharge medication counseling on the following medications: PATIENT ALREADY PRESCRIBED ASPIRIN 81 MG DAILY, LISINOPRIL-HCTZ 20/25 MG DAILY, METOPROLOL SUCCINATE 100 MG DAILY, AND ROSUVASTATIN 20 MG HS. ADDING BRILINTA 90 MG BID TO THIS.
== END 2019-10-30 15:47 | disposition home or self-care (01) ==
LOC: CATHLAB 08:38
PROVIDERS: PCP Emergency Medicine; Visit Provider Internal Medicine
DX: E78.5 Hyperlipidemia, unspecified (principal); I11.0 Hypertensive heart disease with heart failure; I65.29 Occlusion and stenosis of unspecified carotid artery; R94.30 Abnormal result of cardiovascular function study, unspecified; I25.118 Atherosclerotic heart disease of native coronary artery with other forms of angina pectoris; I27.20 Pulmonary hypertension, unspecified; I50.30 Unspecified diastolic (congestive) heart failure; Z87.891 Personal history of nicotine dependence; Z88.8 Allergy status to other drugs, medicaments and biological substances
CPT/HCPCS: 80048; 82810; 85025; 85347; 92928; 93460; 99152; 99153; C1725; C1769; C1874; C1894; C9600; J1644; J2405; Q9967

== ENCOUNTER → 2019-11-10 08:09 | Outpatient (CLI) | payer MEDICARE, SELFPAY ==
[2019-11-10 08:50] LABS: Basophils % 0.3 % (0.1-2.0); Eosinophils # 0.2 K/mm3 (0.0-0.4); Eosinophils % 3.2 % (0.1-12.0); Hematocrit 38.8 % (37.0-47.0); Hemoglobin 13.1 g/dL (12.2-16.2); Lymphocytes # 1.8 K/mm3 (0.7-4.5); Lymphocytes % 26.7 % (10-50); Mean Corpuscular HGB Conc 33.8 g/dL (31.8-35.4); Mean Corpuscular Hemoglobin 31.5 pg (27.0-31.2); Mean Corpuscular Volume 93.3 fl (81-99); Mean Platelet Volume 7.4 fl (7.4-10.4); Monocytes # 0.5 K/mm3 (0.1-1.0); Neutrophils # 4.2 K/mm3 (1.8-7.8); Neutrophils % 62.8 % (37.0-80.0); Platelet Count 310 K/mm3 (142-424); Red Blood Count 4.15 M/mm3 (4.20-5.40); Red Cell Distribution Width 13.8 % (11.5-17.5); White Blood Count 6.8 K/mm3 (4.8-10.8)
[2019-11-10 09:17] LABS: Anion Gap 15.5 mEq/L (5-15); Blood Urea Nitrogen 16 mg/dl (7-17); Calcium 10.3 mg/dl (8.4-10.2); Carbon Dioxide 26 mmol/L (22.0-30.0); Chloride 101 mmol/L (98-107); Estimated Glomerular Filt Rate 81 ml/min (>60); GFR (African American) 98 ML/MIN (>60); Glucose 165 mg/dl (74-100); Potassium 4.5 mmoL/L (3.5-5.1); Sodium 138 mmol/L (136-145)
== END ==
PROVIDERS: Visit Provider Internal Medicine
DX: Z98.61 Coronary angioplasty status (principal); I25.10 Atherosclerotic heart disease of native coronary artery without angina pectoris
CPT/HCPCS: 36415; 80048; 85025

== ENCOUNTER 2019-11-21 12:46 | Outpatient (RCR) | payer MEDICARE, SELFPAY | END 2020-03-07 13:42 | disposition home or self-care (01) | LOC: PT 12:46 | PROVIDERS: Visit Provider Internal Medicine | DX: Z95.5 Presence of coronary angioplasty implant and graft (principal) | CPT/HCPCS: 93798 ==

== ENCOUNTER 2019-12-27 12:58 | Emergency (ER) | payer MEDICARE, SELFPAY ==
--- NOTE | 2019-12-27 13:11 | XR_ITS ---
PROCEDURE: XR RIBS LT MIN 3V W CXR1V CLINICAL INDICATION: pain Left rib pain. Injury to the left ribs. COMPARISON: CXR2V XR chest 2V from 12/21/2017 CXR2V XR chest 2V from 12/24/[address] chest wo con from 01/14/2018 CXR2V XR chest 2V from 02/28/2018 FINDINGS: There is no demonstrated consolidation, vascular congestion or pleural effusion of the visualized lungs. The heart appears top normal in size. Atherosclerotic calcification of the aortic knob. Mediastinum and hilar soft tissues are unremarkable. There is diffuse bony demineralization. Visualized left and right ribs appear intact. No acute bony pathology is evident. Several small calcified granulomata are seen in the spleen. IMPRESSION: No acute findings. Osteopenia. No rib fracture is identified. Dictated by: Giovanni Gupta 12/27/2019 13:40 Electronically signed by Giovanni Gupta in [place] 12/27/2019 13:40
[2019-12-27 13:17] VITALS: BP 128/68; PULSE 100; RESP 20; TEMP 36.7; O2SAT 96; BMI 36.2
--- NOTE | 2019-12-27 13:25 | HMH.EDUTC ---
[facility] – [place] Disposition Clinical Impression: Rib pain on left side Disposition: Home, Self-Care Condition on Discharge: Good Instructions: Muscle Strain, DI for Muscle Strain Additional Instructions: *Ibuprofen chasity 6 hours with meal as needed for pain/inflammation if your doctor has told you that you can take it *Not additional anti-inflammatory like motrin, aleve, advil with the above amount of ibuprofen. You can still take Tylenol every 4 hours as needed if you need something else for pain *Ice 20 minutes every 2 hours for the first 48 hours after the initial injury followed by moist heat every 20 minutes 3-4 times a day to affected area Over the counter Muscle rubs like biofreeze may help with pain and discomfort Over the counter Lidocaine patches applied to the area may help with pain and discomfort *Keep this area active, no movement leads to more stiffness, However take it easy and avoid heavy lifting pushing or pulling *Follow up with you family doctor if no improvement for further treatment and evaluation in the nest 48-72 hours Return if needed Straight to ER if any life threatening symptoms Referrals: Harinder Hearn MD [Primary Care Provider] - As needed Time of Disposition: 13:44 Medical Decision Making - Cory Inquiry Pt receiving controlled substance: No Cory was queried for this patient: No Vital Signs: 12/27/19 13:17 Temperature 98.1 F Temperature Source Oral Pulse Rate [Left Brachial] 100 H Respiratory Rate 20 Blood Pressure [Left Arm] 128/68 Blood Pressure Mean [Left Arm] 88 Blood Pressure Source [Left Arm] Automatic Cuff Blood Pressure Position [Left Arm] Sitting 02 Sat by Pulse Oximetry 96 Oxygen Delivery Method Room Air Orders (Tests/Meds): ORDERS Category Date Time Status XR ribs LT min 3V w CXR1V Stat Exams 12/27/19 13:11 Taken - Radiology Data #1 Image(s): Chest, Other (left ribs) Image Reviewed: Yes I reviewed the patient's radiology image w/the ED provider Preliminary Findings: No Fracture Seen [facility] – [place] HPI - General Stated complaint: left rib cage pain Time Seen by Provider: 12/27/19 13:25 Mode of Arrival: Ambulatory Source of Information: Patient Limitations: No Limitations Description of Symptoms (Recalled from Triage Doc. by RN): PATIENT STATES THAT APPROX 1.5 WEEKS AGO SHE LEANED OVER A CHAIR WHILE SITTING AND INJURED LEFT RIBS. DENIES ANY SOA HEENT Symptoms (Recalled from RN notes): No Resp Symptoms (Recalled from RN notes): No Skin Symptoms (Recalled from RN notes): No MS Symptoms (Recalled from RN notes): Yes Functional Status (Recalled from RN notes): wnl - History of Present Illness Provider Complaint: Patient states that about a week ago bent over the arm of the chair and felt a sharp pain in her left lower rib area States that ever since she has been having soreness and tenderness in her left lower ribs when she moves around or touches them States that she has been doing cardiac rehab and she is having pain when she does the rowing motion so they wanted her to come in and get an xray of her ribs to see if she may have broken them - Related Data Home Medications Medication Instructions Recorded Confirmed fluticasone 250 mcg-salmeterol 50 1 inh INHALATION Q12H 08/16/17 12/15/19 mcg/dose blistr powdr for inhalation Aspirin [Low Dose Aspirin EC] 81 mg PO DAILY 04/20/18 12/15/19 metoprolol succinate 100 mg 100 mg PO DIRECTED tab 12/15/19 12/15/19 tablet,extended release 24 hr Previous Rx's Medication Instructions Recorded lisinopril 20 1 tab PO DAILY #90 tab 02/28/19 mg-hydrochlorothiazide 25 mg tablet clobetasol 0.05 % topical cream 1 applic TOPICAL BID 14 Days #60 g 07/24/19 spironolactone 25 mg tablet 25 mg PO Q OTHER DAY #30 tab 10/05/19 rosuvastatin 20 mg tablet 20 mg PO DAILY #30 tab 10/06/19 isosorbide mononitrate 30 mg 30 mg PO DAILY #30 tab 10/16/19 tablet,extended release 24 hr clopidogrel 75 mg tablet 75 mg PO DAILY #
[2019-12-27 13:30] VITALS: BP 128/68; PULSE 100; RESP 20; TEMP 36.7; O2SAT 96
== END 2019-12-27 13:33 | disposition home or self-care (01) ==
PROVIDERS: Emergency Provider Nurse Practitioner; PCP Emergency Medicine
DX: R07.81 Pleurodynia (principal); I10 Essential (primary) hypertension; E78.5 Hyperlipidemia, unspecified; E03.9 Hypothyroidism, unspecified; I48.20 Chronic atrial fibrillation, unspecified; I25.10 Atherosclerotic heart disease of native coronary artery without angina pectoris; Z88.1 Allergy status to other antibiotic agents; Z88.2 Allergy status to sulfonamides; Z87.891 Personal history of nicotine dependence; Z90.49 Acquired absence of other specified parts of digestive tract; Z90.79 Acquired absence of other genital organ(s)
CPT/HCPCS: 71101; 99201

== ENCOUNTER 2020-06-17 08:59 | Emergency (ER) | payer MEDICARE, SELFPAY ==
[2020-06-17 09:10] VITALS: BP 157/62; PULSE 105; RESP 20; TEMP 37.3; O2SAT 96; BMI 33.3
--- NOTE | 2020-06-17 09:24 | XR_ITS ---
PROCEDURE: XR CHEST 2V CLINICAL HISTORY: cough Cough and fever COMPARISON: CR CXR2V XR chest 2V from 12/24/[address] chest wo con from 01/14/2018 CR CXR2V XR chest 2V from 02/28/2018 CR XR RIBS LT MIN 3V W CXR1V from 12/27/2019 FINDINGS: The cardiomediastinal silhouette and pulmonary vascularity are within normal limits. The lungs are clear without infiltrates, suspicious nodules, or pleural effusions. There are coronary artery calcifications and/or stents noted. There are mild degenerative changes in the thoracic spine IMPRESSION: No acute findings. Dictated by: Emmanuel Kiser MD 06/17/2020 09:57 Emmanuel Kiser MD in [place] 06/17/2020 09:57
--- NOTE | 2020-06-17 09:35 | HMH.EDUTC ---
[facility] – [place], [place] Disposition Clinical Impression: Bronchitis Disposition: Home, Self-Care Condition on Discharge: Good Instructions: Acute Bronchitis, DI for Sinusitis Additional Instructions: ? Start antibiotic today. Be sure to complete entire prescription even if feeling better ? Monitor temp. Tylenol every 4 hours as needed and / or ibuprofen every 6 hours as needed ( As long as your primary care physician has told you that it ok to take both. For fever/aches/pains ER if no less than 101 despite Tylenol or Motrin ? Humidifier/vaporizer or hot steamy shower ? Tessalon Perles will not cause drowsiness but use at bedtime to help stop cough so that you may get some rest. Follow up IMMEDIATELY for new or worsening of symptoms OR no noticeable improvement over the next 48-72 hours. 911 immediately for any life threatening symptoms such as chest pain or difficulty breathing Prescriptions: Cefdinir [Omnicef 300mg Capsule] 300 mg PO BID #20 cap [id number] Benzonatate [Tessalon Perle 100mg Cap*] 100 mg PO TID PRN #30 cap PRN Reason: Cough Transmission Status: [id number] Referrals: Harinder Hearn MD [Primary Care Provider] - As needed Time of Disposition: 09:47 Medical Decision Making - Cory Inquiry Pt receiving controlled substance: No Cory was queried for this patient: No Vital Signs: 06/17/20 09:10 Temperature 99.1 F Temperature Source Oral Pulse Rate [Right Brachial] 105 H Respiratory Rate 20 Blood Pressure [Right Arm] 157/62 H Blood Pressure Mean [Right Arm] 93 Blood Pressure Source [Right Arm] Automatic Cuff Blood Pressure Position [Right Arm] Sitting 02 Sat by Pulse Oximetry 96 Oxygen Delivery Method Room Air Orders (Tests/Meds): ORDERS Category Date Time Status XR chest 2V Stat Exams 06/17/20 09:24 Ordered - Radiology Data #1 Image(s): Chest Image Reviewed: Yes I reviewed the patient's radiology image w/the ED provider Preliminary Findings: Normal/NAD [facility] – [place], [place] HPI - General Stated complaint: soa, cough Time Seen by Provider: 06/17/20 09:35 Mode of Arrival: Ambulatory Source of Information: Patient Limitations: No Limitations Description of Symptoms (Recalled from Triage Doc. by RN): PATIENT C/O PRODUCTIVE COUGH WITH LIGHT YELLOW SPUTUM, AND CHEST TIGHTNESS AND BACK PAIN SINCE WEDNESDAY. DENIES FEVER HEENT Symptoms (Recalled from RN notes): No Resp Symptoms (Recalled from RN notes): Yes Skin Symptoms (Recalled from RN notes): No MS Symptoms (Recalled from RN notes): No Functional Status (Recalled from RN notes): WNL - History of Present Illness Provider Complaint: Patient states that she gets bronchitis several times over the last couple of years and feels like she is getting it again States that she has had some drainage and has been coughing up some yellowish colored mucous but not sure if it is coming from her lungs or drainage States that she wanted to get to get checked before it turned into pneumonia - Related Data Home Medications Medication Instructions Recorded Confirmed fluticasone 250 mcg-salmeterol 50 1 inh INHALATION Q12H 08/16/17 06/14/20 mcg/dose blistr powdr for inhalation Aspirin [Low Dose Aspirin EC] 81 mg PO DAILY 04/20/18 06/14/20 metoprolol succinate 100 mg 100 mg PO DIRECTED tab 12/15/19 06/14/20 tablet,extended release 24 hr Previous Rx's Medication Instructions Recorded clobetasol 0.05 % topical cream 1 applic TOPICAL BID 14 Days #60 g 07/24/19 spironolactone 25 mg tablet 25 mg PO Q OTHER DAY #30 tab 10/05/19 clopidogrel 75 mg tablet 75 mg PO DAILY #30 tab 11/10/19 levothyroxine 25 mcg tablet See Rx Instructions .ROUTE 03/21/20 .COMPLEX #90 tablet lisinopril 20 1 tab PO DAILY #90 tab 03/26/20 mg-hydrochlorothiazide 25 mg tablet isosorbide mononitrate 30 mg See Rx Instructions .ROUTE 04/18/20 tablet,extended release 24 hr .COMPLEX #90 each rosuvastatin 20 mg tablet 20
[2020-06-17 09:55] VITALS: BP 157/62; PULSE 105; RESP 20; TEMP 37.3; O2SAT 96
== END 2020-06-17 09:59 | disposition home or self-care (01) ==
PROVIDERS: Emergency Provider Nurse Practitioner; PCP Emergency Medicine
DX: J20.9 Acute bronchitis, unspecified (principal); I48.91 Unspecified atrial fibrillation; E03.9 Hypothyroidism, unspecified; I10 Essential (primary) hypertension; E78.5 Hyperlipidemia, unspecified; J44.9 Chronic obstructive pulmonary disease, unspecified; I25.10 Atherosclerotic heart disease of native coronary artery without angina pectoris; Z79.899 Other long term (current) drug therapy
CPT/HCPCS: G0463; 71046; 99202

== ENCOUNTER → 2020-08-22 06:07 | Outpatient (CLI) | payer MEDICARE, SELFPAY ==
--- NOTE | 2020-08-22 06:08 | NM_ITS ---
APPROVED REPORT Exam: Nuclear Stress Test Indication: CHEST PAIN..SHORT OF BREATH..FATIGUE Patient Location: Outpatient Stress Tech: Clarisse Ricks OR Tech:DAIJA Hussein RT(R)(N) Ht: 5 ft 1 in Wt: 180 lbs Bra Size: 38 C HR: 99 bpm BP: 184/85 mmHg BSA: 1.81 m2 BMI: 34.0 History: CHEST PAIN..SHORT OF BREATH..FATIGUE Procedure: Patient received a 0.4 mg of intravenous Lexiscan, resting heart rate 99 bpm, resting blood pressure 184/85 mmHg, with Lexiscan maximum heart rate achived was 124 bpm which is 85 % of the maximum predicted heart rate and blood pressure was 213/90 mmHg. Electrocardiogram Resting electrocardiogram showed sinus tachycardia, with Lexiscan there is less than 1.[address] segment depression noted from the baseline EKG. The EKG portion of the Lexiscan is nondiagnostic. Cardiac Stress and Resting SPECT Images: Cardiac Stress and Resting SPECT images were obtained using technetium 99m Myoview 30.6 mCi stress and 10.78 mCi at rest. Gated SPECT for analysis of segmental wall motion and calculation of the ejection fraction also done, prone images were not obtained due to patient's factors. Cardiac stress and resting SPECT images show mild fixed defect in the anterior wall with normal contractility on the gated SPECT is likely secondary to soft tissue attenuation, no reversible ischemia seen, computer derived ejection fraction is over 65% with no regional wall motion abnormality, right ventricle is normal size and contractility. Conclusion: 1. The EKG portion of the Lexiscan is nondiagnostic. 2. No scintigraphic evidence of reversible ischemia seen, computer derived ejection fraction is over 65% with no regional wall motion abnormality, right ventricle is normal size and contractility. 3. Likely normal Lexiscan Myoview study. Electronically signed by : Hector Beavers, 08/22/2020 14:49:28
== END ==
PROVIDERS: PCP Emergency Medicine; Visit Provider Internal Medicine Cardiovascular Disease
DX: E78.5 Hyperlipidemia, unspecified (principal); I10 Essential (primary) hypertension; I25.10 Atherosclerotic heart disease of native coronary artery without angina pectoris; I65.29 Occlusion and stenosis of unspecified carotid artery; R06.00 Dyspnea, unspecified; Z95.5 Presence of coronary angioplasty implant and graft
CPT/HCPCS: 78452; 93017; A9502; J2785

== ENCOUNTER → 2020-10-21 07:07 | Outpatient (CLI) | payer MEDICARE, SELFPAY ==
--- NOTE | 2020-10-21 07:15 | CT_ITS ---
PROCEDURE: CT CHEST WO CON CLINICAL INDICATION: Shortness of air, former smoker COMPARISON: CT CHESTWO CT chest wo con from 01/14/2018 TECHNIQUE: Axial images obtained with sagittal and coronal reformats. All CT scans at the facility use one or more dose reduction, viz: automated exposure control, ma/kV adjustment per patient size (including targeted exams where dose is matched to indication, i.e. head), or iterative reconstruction technique. FINDINGS: HEART AND MEDIASTINAL STRUCTURES: No mediastinal or hilar mass. There are few scattered small mediastinal lymph nodes not significantly changed. Severe coronary artery calcification and/or stents noted. LUNGS AND PLEURAL SPACES: Minimal nodularity noted in the right upper lobe image 23 series 3. There was a faint area of infiltrate in this region on the previous exam. COPD changes. Faint 4 mm nodule right middle lobe image 42 unchanged. There are some areas of postinflammatory scarring. There are few scattered small air cyst. Two small nodular opacities are present in the left apex may be due to areas of scarring not significantly changed calcified granuloma is present in the left upper lobe. There is a new somewhat spiculated nodule in the central aspect of the left upper lobe image 20 series 3. This nodule measures approximately 8 x 7 mm. BONY STRUCTURES: Degenerative changes thoracic spine. There is mild lower thoracic scoliosis convex right UPPER ABDOMEN: Several small hypodense hepatic lesions are present the largest in the right hepatic lobe at the hepatic dome area measuring 8 mm. These may be due to small cyst not significantly changed. Low-density changes are present in the pancreatic head with pancreatic ductal dilatation. Pancreatic head mass is considered. CT of the pancreas without and with contrast with pancreatic protocol suggested for further evaluation. ADDITIONAL FINDINGS: No other significant abnormalities. IMPRESSION: 1. New 8 mm spiculated nodule in the central aspect of the left upper lobe. Neoplasm is considered. Post inflammatory change also consideration. Suggest PET-CT for further evaluation. 2. Low-density changes in the pancreatic head with fullness of the pancreatic head and suggestion of dilatation of the pancreatic duct in the body of the pancreas. CT without and with contrast with pancreatic protocol suggested for further evaluation initially. MRI/MRCP may eventually be needed.. Dictated by: Emmanuel Kiser MD 10/21/2020 09:02 Emmanuel Kiser MD in [place] 10/21/2020 09:02
[2020-10-21 08:20] VITALS: PULSE 74
[2020-10-21 08:39] VITALS: PULSE 73
== END ==
PROVIDERS: PCP Emergency Medicine; Visit Provider Internal Medicine Pulmonary Disease
DX: R06.02 Shortness of breath
CPT/HCPCS: 71250; 94060; 94640; 94726; 94729

== ENCOUNTER → 2020-11-01 08:31 | Outpatient (CLI) | payer MEDICARE, SELFPAY ==
--- NOTE | 2020-11-01 09:12 | CT_ITS ---
PROCEDURE: CT ABDOMEN WO/W CON CLINICAL HISTORY: Pancreatic mass, CT pancreatic protocol Evaluate pancreatic mass COMPARISON: CT CHESTWO CT chest wo con from 01/14/[address] CHEST WO CON from 10/21/2020 TECHNIQUE: 75 mL Isovue 370. Helical images obtained without with contrast with 30 second, 60 second, minute post enhanced images. Axial images obtained with sagittal and coronal reformats. All CT scans at the facility use one or more dose reduction, viz: automated exposure control, ma/kV adjustment per patient size (including targeted exams where dose is matched to indication, i.e. head), or iterative reconstruction technique. FINDINGS: Small hypodensity is present in the right hepatic lobe segment 8 measuring approximately 8 mm. 4 mm hypodensity left hepatic lobe segment 2. 4 mm hypodensity right hepatic lobe segment 5. These may represent hepatic cysts not significantly changed. Fatty liver involvement. The liver has an otherwise unremarkable appearance. Multiple splenic granuloma are noted. The adrenal glands have an unremarkable appearance. No renal calculi. 1.3 cm right renal cyst. No renal mass. Somewhat ill-defined hypodense lesion is present within the pancreatic head at 2 cm. There is severe dilatation of the pancreatic duct. The pancreatic head mass does not contain calcification. There is some minimal stranding of the peripancreatic fat anteriorly at the region of the mass. The pancreatic duct measures up to eleven mm in diameter. The common bile duct and intrahepatic biliary radicles are not dilated. There has been a prior cholecystectomy. There are a few small peripancreatic and periportal lymph nodes. IMPRESSION: Low-density 2 cm mass within the pancreatic head with pancreatic ductal dilatation. Differential diagnosis would include cystic pancreatic neoplasm such as a main duct IPMN versus pancreatic adenocarcinoma. ERCP may provide further evaluation. Dictated by: Emmanuel Kiser MD 11/04/2020 10:53 Emmanuel Kiser MD in [place] 11/04/2020 10:53
[2020-11-01 09:13] LABS: Blood Urea Nitrogen 19 mg/dl (7-17); Estimated Glomerular Filt Rate 69 ml/min (>60); GFR (African American) 84 ML/MIN (>60)
== END ==
PROVIDERS: PCP Emergency Medicine; Visit Provider Internal Medicine Pulmonary Disease
DX: K86.89 Other specified diseases of pancreas (principal)
CPT/HCPCS: 36415; 74170; 82565; 84520; Q9967

== ENCOUNTER → 2020-11-04 09:58 | Outpatient (POV) | payer MEDICARE, SELFPAY ==
[2020-11-04 13:33] LABS: Alanine Aminotransferase 13 U/L (12-78); Albumin Level 4.4 g/dl (3.5-5.0); Albumin/Globulin Ratio 1.6 (1.1-1.8); Alkaline Phosphatase 69 U/L (38-126); Amylase 54 U/L (30-110); Anion Gap 13.5 mEq/L (5-15); Aspartate Amino Transferase 26 U/L (14-36); Bilirubin,Total 0.6 mg/dl (0.2-1.3); Blood Urea Nitrogen 19 mg/dl (7-17); Calcium 9.7 mg/dl (8.4-10.2); Carbon Dioxide 26 mmol/L (22.0-30.0); Chloride 107 mmol/L (98-107); Estimated Glomerular Filt Rate 60 ml/min (>60); GFR (African American) 73 ML/MIN (>60); Globulin 2.8 g/dL (1.3-3.2); Glucose 112 mg/dl (74-100); Lipase 252 U/L (23-300); Potassium 4.5 mmoL/L (3.5-5.1); Sodium 142 mmol/L (136-145); Total Protein,Serum 7.2 g/dl (6.3-8.2)
== END ==
PROVIDERS: Visit Provider Nurse Practitioner Family
DX: R10.84 Generalized abdominal pain (principal); R19.09 Other intra-abdominal and pelvic swelling, mass and lump; K86.9 Disease of pancreas, unspecified; K59.00 Constipation, unspecified; R19.7 Diarrhea, unspecified
CPT/HCPCS: 36415; 80053; 82150; 83690

== ENCOUNTER → 2020-12-27 07:44 | Outpatient (CLI) | payer MEDICARE, SELFPAY | PROVIDERS: Visit Provider Internal Medicine Gastroenterology | DX: Z01.812 Encounter for preprocedural laboratory examination (principal); Z20.822 Contact with and (suspected) exposure to COVID-19 | CPT/HCPCS: U0003 ==

== ENCOUNTER 2020-12-30 12:20 | Day surgery (SDC) | payer MEDICARE, SELFPAY ==
[2020-12-24 10:26] VITALS: BMI 34.0
[2020-12-30] VITALS (8 sets, daily range): BP systolic 103–158; BP diastolic 42–94; PULSE 68–82; RESP 12–16; TEMP 36.6; O2SAT 95–96
--- NOTE | 2020-12-30 14:00 | FL_ITS ---
PROCEDURE: FL ERCP CLINICAL INDICATION: Right Upper Quadrant Pain Pancreatic mass COMPARISON: CT CT ABDOMEN WO/W CON from 11/01/2020 FINDINGS: Fluoro: 1.3 minutes Multiple images submitted during the ERCP Limited images submitted demonstrates injection of contrast into the common bile duct with oval lucencies on some of the images which may be due to air bubbles. Common bile duct is prominent at 1 cm. Prior cholecystectomy pancreatic duct within cannulated and injected showing abrupt cut off in the region of the junction of head and body of the pancreas at the area of the pancreatic mass. The duct is not visualized upstream from this area of cut off. IMPRESSION: 1. Dilated common bile duct. Prior cholecystectomy 2. Abrupt cut off of contrast in the main pancreatic duct at the junction of the body and head which may represent a malignant stricture. Please correlate with fluoroscopic findings. Dictated by: Emmanuel Kiser MD 12/31/2020 15:10 Emmanuel Kiser MD in [place] 12/31/2020 15:10
--- NOTE | 2020-12-30 14:24 | HMH.PROC ---
[facility] Procedure Note Procedure Note:: ERCP procedure Report: Endoscopic retrograde cholangiopancreatography Endoscopist: Lam Baeza II, MD Referring Physician: Harinder Hearn MD/Asher Vanessa ND Date of Procedure: December 30, 2020 Equipment: Olympus 180 side viewing endoscope duodenoscope Sedation: MAC sedation Indication: Mrs. Mario is a 80-year-old female that had an incidental pancreatic mass on imaging of the abdomen. Her CAT scan was done later with IV/oral pancreatic protocol and there was a 2 cm low-density lesion within the pancreatic head with ductal dilation up to 11 mm (upstream from the pancreatic mass). Her common bile duct and intrahepatic ducts were not dilated. The patient did have a prior cholecystectomy. She has not had a CA 19-9. She has had some minor weight loss. She was a former heavy smoker. She reports no family history of GI/digestive cancers or pancreatic cancer. She is not a diabetic. She does get some right-sided abdominal discomfort. Recently she has had some constipation. Procedure: Prior to the procedure, a history and physical exam was performed, and patient's medications and allergies were reviewed. The risks, benefits and alternatives of the sedation and procedure were discussed with the patient. All questions were answered and informed consent was obtained. The patient was brought to the fluoroscopic radiology room. Patient identification and proposed procedure were verified by the physician and the nurse. The patient was placed in a swimmer's position between left lateral decubitus and prone position and the scope was passed under direct vision. Throughout the procedure, the patient's blood pressure, pulse, and oxygen saturations were monitored continuously. The ERCP was accomplished without difficulty. The patient tolerated the procedure well. Findings: The side-viewing duodenoscope was passed directly into the upper esophagus and advanced to the second portion of the duodenum. The ampulla was well visualized. There was obvious evidence of prior biliary sphincterotomy. The common bile duct was cannulated and the common bile duct diameter was approximately 8 mm. There was normal filling of the intrahepatic biliary system. There were no strictures or filling defects within the common bile duct. Next, the pancreatic duct was cannulated. The pancreatogram did showed normal pancreatic duct in the head and neck with normal uncinate. However, at the junction of the neck and body was a complete cut off of the pancreatic duct indicative of a pancreatic ductal stricture at the junction of the head and body of the pancreas. This was very suspicious. A guidewire could not be advanced beyond the stricture. Based upon its location more deeply within the pancreas, brushings and biopsies could not be easily performed. The procedure was then ended. Impression: 1. 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 Prior biliary sphincterotomy Plan: I am going to obtain a CA 19-9 today. I am concerned that there is a ductal mass with stricture that is suspicious for pancreatic malignancy. Certainly this could be a ductal IPMN. The next step will be endoscopic ultrasound. I will discuss the findings with the patient and family.
--- NOTE | 2020-12-30 15:35 | HMH.ANESCL ---
[facility] Anesthesia Checklist - Structural Data Admitted From: Home Planned Operative Procedure/s: ercp Consent for Planned Operative Procedure(s) Verified: Yes - Additional verifications Anesthesia Reactions: No - Airway Assessment C-Spine Mobility Assessed: Yes TMJ Mobility Assessed: Yes Dentition: Edentulous - Neurological Assessment Level of Consciousness: Awake, Alert, Appropriate - Anesthesia Plan Anesthesia Risk discussed: Yes Anesthesia Plan: Verified ASA Class: III Anesthesia Type: MAC [facility] History I have reviewed the patient's past medical history: Yes Medical History: Reports:: Aneurysm, Atrial Fibrillation, Chronic Obstructive Pulmonary Disease (COPD), Coronary Artery Disease, Hyperlipidemia, Hypertension, Lung Disease Denies:: Cancer, Diabetes Mellitus Type 1, Diabetes Mellitus Type 2, Internal Pacemaker, MRSA, Seizures *Have you ever received a pneumonia vaccine?: Yes *Have you received a flu vaccine this season?: Yes Other Medical History: Reports: Arthritis, Hypothyroidism, Other Anesthesia experience/problems:: none Laterality Cases: Bilateral: Cataract Other Surgeries: Yes: Angioplasty, Appendectomy, Cardiac Catheterization, Cardiac Surgery, Cholecystectomy, Coronary Stent, Dilation and Curettage, Hysterectomy-Total, Hysterectomy-Partial, Tubal Ligation, Other. No: Colonoscopy, Pacemaker Amputation: No Fractures: No - *Social History Last grade of school completed: High school graduate Smoking Status: Former smoker Tobacco Type: cigarettes # Packs/Day (cigarettes): 1 #Yrs smoked (if former smoker): 11 Alcohol Intake: never Alcohol Intake Frequency:: other Substance Use Type: denies use *Occupational Status:: other Housing: house Household Members: none *Travel in the last 8 weeks: None Family Hx:: Diabetes, Coronary Artery Disease, Cancer, Hyperlipidemia, Heart Attack, Hypertension, Stroke
[2021-01-01 11:19] LABS: CA 19-9 568 U/mL (0-35); CEA 3.1 ng/mL (0.0-4.7)
== END 2020-12-30 15:47 | disposition home or self-care (01) ==
LOC: OUTP 12:23
PROVIDERS: PCP Emergency Medicine; Visit Provider Internal Medicine Gastroenterology
DX: K86.89 Other specified diseases of pancreas (principal); I25.10 Atherosclerotic heart disease of native coronary artery without angina pectoris; I10 Essential (primary) hypertension; E78.5 Hyperlipidemia, unspecified; J44.9 Chronic obstructive pulmonary disease, unspecified; F32.9 Major depressive disorder, single episode, unspecified; K21.9 Gastro-esophageal reflux disease without esophagitis; E07.9 Disorder of thyroid, unspecified; Z80.3 Family history of malignant neoplasm of breast; Z83.3 Family history of diabetes mellitus; Z82.49 Family history of ischemic heart disease and other diseases of the circulatory system; Z88.8 Allergy status to other drugs, medicaments and biological substances
CPT/HCPCS: 43260; 74330; 82378; 86316

== ENCOUNTER → 2021-01-07 11:57 | Outpatient (CLI) | payer MEDICARE, SELFPAY | DX: Z01.812 Encounter for preprocedural laboratory examination (principal); Z20.822 Contact with and (suspected) exposure to COVID-19; K86.89 Other specified diseases of pancreas | CPT/HCPCS: U0003 ==

== ENCOUNTER → 2021-01-24 13:54 | Outpatient (CLI) | payer MEDICARE, SELFPAY ==
--- NOTE | 2021-01-24 13:54 | CT_ITS ---
PROCEDURE: CT CHEST WO CON CLINICAL INDICATION: 3-month follow-up Follow-up pulmonary nodule COMPARISON: CT CHESTWO CT chest wo con from 01/14/[address] CHEST WO CON from 10/21/[address] ABDOMEN WO/W CON from 11/01/2020 TECHNIQUE: Axial images obtained with sagittal and coronal reformats. All CT scans at the facility use one or more dose reduction, viz: automated exposure control, ma/kV adjustment per patient size (including targeted exams where dose is matched to indication, i.e. head), or iterative reconstruction technique. FINDINGS: Atherosclerotic vascular disease with calcified plaque of the aorta and coronary arteries. There are severe coronary artery calcifications with stents noted. There is minimal thickening of the pericardium anteriorly. There are multiple scattered parenchymal and subpleural opacities previously described not significantly changed. There has been further increase in size in the left upper lobe spiculated nodule measuring 9 by 7 x 8 mm previously 6 x 6 x 8 mm. This is suspicious for malignancy. Suggest PET-CT for further evaluation if not already performed. No effusions or infiltrates. No mediastinal or hilar adenopathy. Upper abdominal images demonstrates at least 2 hepatic hypodensities 1 in the right hepatic lobe in 1 the left hepatic lobe at 7 and 4 mm. These may represent cysts not significantly changed from 01/14/2018 Incidental note is made dilatation of the pancreatic duct with some mild fullness in the pancreatic head. IMPRESSION: 1. Increase in size in spiculated left upper lobe nodule suspicious for neoplasm. Consider PET-CT for further evaluation. The size and location of the nodule precludes CT directed FNA. 2. Enlarged pancreatic duct with fullness in the head of the pancreas consistent with pancreatic neoplasm Dictated by: Emmanuel Kiser MD 01/27/2021 08:22 Emmanuel Kiser MD in [place] 01/27/2021 08:22
== END ==
PROVIDERS: PCP Emergency Medicine; Visit Provider Internal Medicine Pulmonary Disease
DX: R91.8 Other nonspecific abnormal finding of lung field (principal)
CPT/HCPCS: 71250

== ENCOUNTER → 2021-02-01 08:16 | Outpatient (CLI) | payer MEDICARE, SELFPAY | PROVIDERS: Visit Provider Nurse Practitioner Family | DX: Z01.812 Encounter for preprocedural laboratory examination (principal); Z20.822 Contact with and (suspected) exposure to COVID-19; C25.9 Malignant neoplasm of pancreas, unspecified | CPT/HCPCS: U0003 ==

== ENCOUNTER → 2021-02-13 09:07 | Outpatient (CLI) | payer MEDICARE, SELFPAY | PROVIDERS: Visit Provider Student in an Organized Health Care Education/Training Program | DX: Z20.822 Contact with and (suspected) exposure to COVID-19 (principal) | CPT/HCPCS: C9803; U0003; U0005 ==

== ENCOUNTER 2021-02-28 10:02 | Outpatient (CLI) | payer MEDICARE, SELFPAY ==
[2021-02-28 10:06] VITALS: BMI 33.2
[2021-02-28 11:12] LABS: Basophils % 0.4 % (0.1-2.0); Eosinophils # 0.1 K/mm3 (0.0-0.4); Eosinophils % 1.6 % (0.1-12.0); Hematocrit 35.7 % (37.0-47.0); Hemoglobin 11.9 g/dL (12.2-16.2); Lymphocytes # 1.4 K/mm3 (0.7-4.5); Lymphocytes % 21.2 % (10-50); Mean Corpuscular HGB Conc 33.3 g/dL (31.8-35.4); Mean Corpuscular Hemoglobin 30.8 pg (27.0-31.2); Mean Corpuscular Volume 92.5 fl (81-99); Mean Platelet Volume 8.5 fl (7.4-10.4); Monocytes # 0.5 K/mm3 (0.1-1.0); Monocytes % 7.1 % (1.7-9.3); Neutrophils # 4.7 K/mm3 (1.8-7.8); Neutrophils % 69.8 % (37.0-80.0); Platelet Count 290 K/mm3 (142-424); Red Blood Count 3.86 M/mm3 (4.20-5.40); Red Cell Distribution Width 13.8 % (11.5-17.5); White Blood Count 6.7 K/mm3 (4.8-10.8)
[2021-02-28 11:20] LABS: Chloride 105 mmol/L (98-107); Sodium 140 mmol/L (136-145)
[2021-02-28 11:22] LABS: Alanine Aminotransferase 11 U/L (12-78); Aspartate Amino Transferase 25 U/L (14-36); Blood Urea Nitrogen 14 mg/dl (7-17); Creatinine Clearance Estimated 57 mL/min (50-200); Estimated Glomerular Filt Rate 96 ml/min (>60); GFR (African American) 117 ML/MIN (>60)
[2021-02-28 11:23] LABS: Albumin Level 4.3 g/dl (3.5-5.0); Albumin/Globulin Ratio 1.4 (1.1-1.8); Alkaline Phosphatase 80 U/L (38-126); Bilirubin,Total 0.5 mg/dl (0.2-1.3); Calcium 9.8 mg/dl (8.4-10.2); Carbon Dioxide 25 mmol/L (22.0-30.0); Globulin 3.1 g/dL (1.3-3.2); Glucose 127 mg/dl (74-100); Total Protein,Serum 7.4 g/dl (6.3-8.2)
[2021-02-28 12:25] VITALS: BP 89/45; PULSE 78; RESP 18; TEMP 36.4; O2SAT 96
[2021-02-28 12:40] VITALS: BP 98/50; PULSE 79; RESP 18
[2021-02-28 12:55] VITALS: BP 91/40; PULSE 74; RESP 16
[2021-02-28 13:10] VITALS: BP 101/43; PULSE 76; RESP 16
[2021-02-28 13:25] VITALS: BP 90/41; PULSE 80; RESP 16
[2021-02-28 13:40] VITALS: BP 108/51; PULSE 80; RESP 16
== END 2021-02-28 13:55 | disposition home or self-care (01) ==
LOC: INF 10:04
PROVIDERS: PCP Emergency Medicine; Visit Provider Internal Medicine Medical Oncology
DX: C25.9 Malignant neoplasm of pancreas, unspecified (principal)
CPT/HCPCS: 80053; 85025; 96413; 96417; J1642; J9201; J9264; Q0166

== ENCOUNTER 2021-03-05 08:24 | Outpatient (CLI) | payer MEDICARE, SELFPAY ==
[2021-03-05 08:32] VITALS: BMI 33.4
[2021-03-05 09:23] LABS: Basophils % 0.2 % (0.1-2.0); Eosinophils # 0.2 K/mm3 (0.0-0.4); Eosinophils % 3.7 % (0.1-12.0); Hematocrit 30.3 % (37.0-47.0); Lymphocytes # 0.7 K/mm3 (0.7-4.5); Lymphocytes % 13.4 % (10-50); Mean Corpuscular HGB Conc 33.1 g/dL (31.8-35.4); Mean Corpuscular Hemoglobin 30.9 pg (27.0-31.2); Mean Corpuscular Volume 93.5 fl (81-99); Mean Platelet Volume 9.5 fl (7.4-10.4); Monocytes # 0.1 K/mm3 (0.1-1.0); Monocytes % 1.6 % (1.7-9.3); Neutrophils # 4.4 K/mm3 (1.8-7.8); Neutrophils % 81.2 % (37.0-80.0); Platelet Count 206 K/mm3 (142-424); Red Blood Count 3.24 M/mm3 (4.20-5.40); Red Cell Distribution Width 13.5 % (11.5-17.5); White Blood Count 5.5 K/mm3 (4.8-10.8)
[2021-03-05 09:32] LABS: Chloride 102 mmol/L (98-107); Potassium 3.5 mmoL/L (3.5-5.1); Sodium 137 mmol/L (136-145)
[2021-03-05 09:35] LABS: Alanine Aminotransferase 17 U/L (12-78); Albumin Level 3.7 g/dl (3.5-5.0); Albumin/Globulin Ratio 1.2 (1.1-1.8); Alkaline Phosphatase 74 U/L (38-126); Anion Gap 15.5 mEq/L (5-15); Aspartate Amino Transferase 29 U/L (14-36); Bilirubin,Total 0.3 mg/dl (0.2-1.3); Blood Urea Nitrogen 26 mg/dl (7-17); Carbon Dioxide 23 mmol/L (22.0-30.0); Creatinine Clearance Estimated 32 mL/min (50-200); Estimated Glomerular Filt Rate 27 ml/min (>60); GFR (African American) 33 ML/MIN (>60); Total Protein,Serum 6.7 g/dl (6.3-8.2)
[2021-03-05 09:36] LABS: Calcium 9.3 mg/dl (8.4-10.2); Glucose 178 mg/dl (74-100)
[2021-03-05 10:03] VITALS: BP 111/56; PULSE 90; RESP 16; TEMP 36.5; O2SAT 96
[2021-03-05 10:33] VITALS: BP 116/70; PULSE 81; RESP 16
[2021-03-05 11:03] VITALS: BP 129/56; PULSE 86; RESP 16
== END 2021-03-05 11:15 | disposition home or self-care (01) ==
LOC: INF 08:25
PROVIDERS: PCP Emergency Medicine; Visit Provider Internal Medicine Medical Oncology
DX: C25.9 Malignant neoplasm of pancreas, unspecified (principal)
CPT/HCPCS: 80053; 85025; 96360; 96375; J1642

== ENCOUNTER 2021-03-06 09:20 | Outpatient (CLI) | payer MEDICARE, SELFPAY ==
[2021-03-06 09:27] VITALS: BMI 33.4
[2021-03-06 09:53] LABS: Basophils % 0.2 % (0.1-2.0); Hematocrit 28.2 % (37.0-47.0); Hemoglobin 9.2 g/dL (12.2-16.2); Lymphocytes # 0.8 K/mm3 (0.7-4.5); Lymphocytes % 20.3 % (10-50); Mean Corpuscular HGB Conc 32.8 g/dL (31.8-35.4); Mean Corpuscular Hemoglobin 31.2 pg (27.0-31.2); Mean Corpuscular Volume 95.1 fl (81-99); Mean Platelet Volume 9.5 fl (7.4-10.4); Monocytes # 0.2 K/mm3 (0.1-1.0); Monocytes % 4.9 % (1.7-9.3); Neutrophils % 74.6 % (37.0-80.0); Platelet Count 176 K/mm3 (142-424); Red Blood Count 2.97 M/mm3 (4.20-5.40); Red Cell Distribution Width 14.4 % (11.5-17.5)
[2021-03-06 10:00] LABS: Chloride 108 mmol/L (98-107); Sodium 139 mmol/L (136-145)
[2021-03-06 10:02] LABS: Alanine Aminotransferase 14 U/L (12-78); Aspartate Amino Transferase 21 U/L (14-36); Blood Urea Nitrogen 34 mg/dl (7-17); Creatinine Clearance Estimated 48 mL/min (50-200); Estimated Glomerular Filt Rate 43 ml/min (>60); GFR (African American) 52 ML/MIN (>60)
[2021-03-06 10:03] LABS: Albumin Level 3.5 g/dl (3.5-5.0); Albumin/Globulin Ratio 1.2 (1.1-1.8); Alkaline Phosphatase 65 U/L (38-126); Calcium 9.3 mg/dl (8.4-10.2); Carbon Dioxide 23 mmol/L (22.0-30.0); Globulin 2.9 g/dL (1.3-3.2); Glucose 111 mg/dl (74-100); Total Protein,Serum 6.4 g/dl (6.3-8.2)
[2021-03-06 10:05] LABS: Bilirubin,Total < 0.1 mg/dl (0.2-1.3)
[2021-03-06 10:50] VITALS: BP 122/53; PULSE 73; RESP 17; TEMP 35.9; O2SAT 98
[2021-03-06 12:01] VITALS: BP 116/77; PULSE 69; RESP 18; O2SAT 97
== END 2021-03-06 12:05 | disposition home or self-care (01) ==
LOC: INF 09:22
PROVIDERS: PCP Emergency Medicine; Visit Provider Internal Medicine Medical Oncology
DX: C25.9 Malignant neoplasm of pancreas, unspecified (principal); Z45.2 Encounter for adjustment and management of vascular access device
CPT/HCPCS: 80053; 85025; 96360; J1642; Q0166

== ENCOUNTER 2021-03-13 07:53 | Outpatient (CLI) | payer MEDICARE, SELFPAY ==
[2021-03-13 08:09] VITALS: BMI 34.2
[2021-03-13 08:29] LABS: Basophils % 0.3 % (0.1-2.0); Eosinophils # 0.1 K/mm3 (0.0-0.4); Eosinophils % 2.1 % (0.1-12.0); Hematocrit 32.3 % (37.0-47.0); Hemoglobin 10.4 g/dL (12.2-16.2); Lymphocytes # 1.1 K/mm3 (0.7-4.5); Lymphocytes % 20.2 % (10-50); Mean Corpuscular HGB Conc 32.4 g/dL (31.8-35.4); Mean Corpuscular Hemoglobin 31.1 pg (27.0-31.2); Mean Corpuscular Volume 96.1 fl (81-99); Mean Platelet Volume 9.8 fl (7.4-10.4); Monocytes # 0.4 K/mm3 (0.1-1.0); Monocytes % 6.7 % (1.7-9.3); Neutrophils # 3.7 K/mm3 (1.8-7.8); Neutrophils % 70.7 % (37.0-80.0); Platelet Count 346 K/mm3 (142-424); Red Blood Count 3.36 M/mm3 (4.20-5.40); Red Cell Distribution Width 14.6 % (11.5-17.5); White Blood Count 5.3 K/mm3 (4.8-10.8)
[2021-03-13 08:35] LABS: Chloride 106 mmol/L (98-107); Potassium 3.4 mmoL/L (3.5-5.1); Sodium 141 mmol/L (136-145)
[2021-03-13 08:38] LABS: Alanine Aminotransferase 40 U/L (12-78); Albumin Level 3.8 g/dl (3.5-5.0); Albumin/Globulin Ratio 1.2 (1.1-1.8); Alkaline Phosphatase 70 U/L (38-126); Anion Gap 12.4 mEq/L (5-15); Aspartate Amino Transferase 69 U/L (14-36); Bilirubin,Total 0.3 mg/dl (0.2-1.3); Blood Urea Nitrogen 15 mg/dl (7-17); Calcium 9.2 mg/dl (8.4-10.2); Carbon Dioxide 26 mmol/L (22.0-30.0); Creatinine Clearance Estimated 59 mL/min (50-200); Estimated Glomerular Filt Rate 96 ml/min (>60); GFR (African American) 117 ML/MIN (>60); Globulin 3.1 g/dL (1.3-3.2); Glucose 238 mg/dl (74-100); Total Protein,Serum 6.9 g/dl (6.3-8.2)
[2021-03-13 10:13] VITALS: BP 123/77; PULSE 85; RESP 18; TEMP 36.3; O2SAT 96
[2021-03-13 10:28] VITALS: BP 111/46; PULSE 84; RESP 16
[2021-03-13 10:43] VITALS: BP 117/58; PULSE 83; RESP 16
[2021-03-13 10:58] VITALS: BP 120/52; PULSE 85; RESP 16
[2021-03-13 11:13] VITALS: BP 105/48; PULSE 84; RESP 16
[2021-03-13 11:28] VITALS: BP 124/57; PULSE 83; RESP 16
== END 2021-03-13 12:00 | disposition home or self-care (01) ==
LOC: INF 07:54
PROVIDERS: PCP Emergency Medicine; Visit Provider Internal Medicine Medical Oncology
DX: Z51.11 Encounter for antineoplastic chemotherapy (principal); C25.9 Malignant neoplasm of pancreas, unspecified
CPT/HCPCS: 80053; 85025; 96413; 96417; J1642; J2469; J9201; J9264; Q0166

== ENCOUNTER 2021-03-20 10:31 | Outpatient (CLI) | payer MEDICARE, SELFPAY ==
[2021-03-20] VITALS (7 sets, daily range): BP systolic 95–138; BP diastolic 45–52; PULSE 80–89; RESP 18; TEMP 36.1; O2SAT 97–100; BMI 33.4
[2021-03-20 11:08] LABS: Basophils % 0.6 % (0.1-2.0); Eosinophils % 0.9 % (0.1-12.0); Hematocrit 29.9 % (37.0-47.0); Hemoglobin 9.6 g/dL (12.2-16.2); Lymphocytes # 0.9 K/mm3 (0.7-4.5); Lymphocytes % 37.4 % (10-50); Mean Corpuscular Hemoglobin 30.7 pg (27.0-31.2); Mean Corpuscular Volume 95.9 fl (81-99); Mean Platelet Volume 8.3 fl (7.4-10.4); Monocytes # 0.2 K/mm3 (0.1-1.0); Monocytes % 8.5 % (1.7-9.3); Neutrophils # 1.3 K/mm3 (1.8-7.8); Neutrophils % 52.6 % (37.0-80.0); Platelet Count 314 K/mm3 (142-424); Red Blood Count 3.12 M/mm3 (4.20-5.40); White Blood Count 2.4 K/mm3 (4.8-10.8)
[2021-03-20 11:23] LABS: Alanine Aminotransferase 39 U/L (12-78); Albumin Level 3.7 g/dl (3.5-5.0); Albumin/Globulin Ratio 1.2 (1.1-1.8); Alkaline Phosphatase 64 U/L (38-126); Anion Gap 14.9 mEq/L (5-15); Aspartate Amino Transferase 67 U/L (14-36); Bilirubin,Total 0.2 mg/dl (0.2-1.3); Blood Urea Nitrogen 14 mg/dl (7-17); Calcium 9.3 mg/dl (8.4-10.2); Carbon Dioxide 25 mmol/L (22.0-30.0); Chloride 106 mmol/L (98-107); Creatinine Clearance Estimated 58 mL/min (50-200); Estimated Glomerular Filt Rate 96 ml/min (>60); GFR (African American) 117 ML/MIN (>60); Glucose 127 mg/dl (74-100); Potassium 3.9 mmoL/L (3.5-5.1); Sodium 142 mmol/L (136-145); Total Protein,Serum 6.7 g/dl (6.3-8.2)
== END 2021-03-20 15:20 | disposition home or self-care (01) ==
LOC: INF 10:31
PROVIDERS: PCP Emergency Medicine; Visit Provider Internal Medicine Medical Oncology
DX: Z51.11 Encounter for antineoplastic chemotherapy (principal); C25.9 Malignant neoplasm of pancreas, unspecified
CPT/HCPCS: 80053; 85025; 96413; 96415; 96417; J1642; J2469; J9201; J9264; Q0166

== ENCOUNTER 2021-04-03 08:23 | Outpatient (CLI) | payer MEDICARE, SELFPAY ==
[2021-04-03 08:33] VITALS: BMI 34.0
[2021-04-03 08:58] LABS: Basophils % 0.7 % (0.1-2.0); Eosinophils # 0.2 K/mm3 (0.0-0.4); Eosinophils % 3.7 % (0.1-12.0); Hematocrit 32.6 % (37.0-47.0); Hemoglobin 10.3 g/dL (12.2-16.2); Lymphocytes # 1.2 K/mm3 (0.7-4.5); Lymphocytes % 27.5 % (10-50); Mean Corpuscular HGB Conc 31.7 g/dL (31.8-35.4); Mean Corpuscular Hemoglobin 30.9 pg (27.0-31.2); Mean Corpuscular Volume 97.4 fl (81-99); Mean Platelet Volume 7.8 fl (7.4-10.4); Monocytes # 0.4 K/mm3 (0.1-1.0); Monocytes % 10.1 % (1.7-9.3); Neutrophils # 2.6 K/mm3 (1.8-7.8); Platelet Count 566 K/mm3 (142-424); Red Blood Count 3.34 M/mm3 (4.20-5.40); Red Cell Distribution Width 17.5 % (11.5-17.5); White Blood Count 4.4 K/mm3 (4.8-10.8)
[2021-04-03 09:10] LABS: Alanine Aminotransferase 57 U/L (12-78); Albumin Level 4.2 g/dl (3.5-5.0); Albumin/Globulin Ratio 1.6 (1.1-1.8); Alkaline Phosphatase 71 U/L (38-126); Anion Gap 12.9 mEq/L (5-15); Aspartate Amino Transferase 72 U/L (14-36); Bilirubin,Total 0.3 mg/dl (0.2-1.3); Blood Urea Nitrogen 16 mg/dl (7-17); Calcium 9.6 mg/dl (8.4-10.2); Carbon Dioxide 25 mmol/L (22.0-30.0); Chloride 108 mmol/L (98-107); Creatinine Clearance Estimated 59 mL/min (50-200); Estimated Glomerular Filt Rate 96 ml/min (>60); GFR (African American) 117 ML/MIN (>60); Globulin 2.7 g/dL (1.3-3.2); Glucose 109 mg/dl (74-100); Potassium 3.9 mmoL/L (3.5-5.1); Sodium 142 mmol/L (136-145); Total Protein,Serum 6.9 g/dl (6.3-8.2)
[2021-04-03 10:30] VITALS: BP 122/57; PULSE 85; RESP 16; TEMP 35.6; O2SAT 96
[2021-04-03 10:45] VITALS: BP 108/58; PULSE 80; RESP 16
[2021-04-03 11:00] VITALS: BP 105/50; PULSE 78; RESP 16
[2021-04-03 11:15] VITALS: BP 114/56; PULSE 81; RESP 16
[2021-04-03 11:30] VITALS: BP 106/55; PULSE 80; RESP 16
[2021-04-03 11:45] VITALS: BP 112/81; PULSE 86; RESP 16
== END 2021-04-03 12:15 | disposition home or self-care (01) ==
LOC: INF 08:24
PROVIDERS: PCP Emergency Medicine; Visit Provider Internal Medicine Medical Oncology
DX: Z51.11 Encounter for antineoplastic chemotherapy (principal); C25.9 Malignant neoplasm of pancreas, unspecified
CPT/HCPCS: 80053; 85025; 96413; 96417; J1642; J2469; J9201; J9264; Q0166

== ENCOUNTER 2021-04-10 08:18 | Outpatient (CLI) | payer MEDICARE, SELFPAY ==
[2021-04-10] VITALS (9 sets, daily range): BP systolic 107–145; BP diastolic 44–62; PULSE 77–83; RESP 17; TEMP 36.6; O2SAT 96–97; BMI 33.3
[2021-04-10 08:42] LABS: Basophils % 0.9 % (0.1-2.0); Eosinophils % 1.1 % (0.1-12.0); Hemoglobin 9.8 g/dL (12.2-16.2); Lymphocytes # 0.8 K/mm3 (0.7-4.5); Lymphocytes % 32.9 % (10-50); Mean Corpuscular HGB Conc 32.8 g/dL (31.8-35.4); Mean Corpuscular Hemoglobin 31.9 pg (27.0-31.2); Mean Corpuscular Volume 97.1 fl (81-99); Mean Platelet Volume 8.4 fl (7.4-10.4); Monocytes # 0.2 K/mm3 (0.1-1.0); Monocytes % 8.2 % (1.7-9.3); Neutrophils # 1.4 K/mm3 (1.8-7.8); Neutrophils % 56.9 % (37.0-80.0); Platelet Count 336 K/mm3 (142-424); Red Blood Count 3.08 M/mm3 (4.20-5.40); Red Cell Distribution Width 17.4 % (11.5-17.5); White Blood Count 2.5 K/mm3 (4.8-10.8)
[2021-04-10 08:48] LABS: Alanine Aminotransferase 37 U/L (12-78); Albumin/Globulin Ratio 1.5 (1.1-1.8); Alkaline Phosphatase 61 U/L (38-126); Anion Gap 11.9 mEq/L (5-15); Aspartate Amino Transferase 50 U/L (14-36); Bilirubin,Total 0.4 mg/dl (0.2-1.3); Blood Urea Nitrogen 17 mg/dl (7-17); Calcium 9.5 mg/dl (8.4-10.2); Carbon Dioxide 26 mmol/L (22.0-30.0); Chloride 107 mmol/L (98-107); Creatinine Clearance Estimated 58 mL/min (50-200); Estimated Glomerular Filt Rate 96 ml/min (>60); GFR (African American) 117 ML/MIN (>60); Globulin 2.7 g/dL (1.3-3.2); Glucose 146 mg/dl (74-100); Potassium 3.9 mmoL/L (3.5-5.1); Sodium 141 mmol/L (136-145); Total Protein,Serum 6.7 g/dl (6.3-8.2)
== END 2021-04-10 12:45 | disposition home or self-care (01) ==
LOC: INF 08:19
PROVIDERS: PCP Emergency Medicine; Visit Provider Internal Medicine Medical Oncology
DX: Z51.11 Encounter for antineoplastic chemotherapy (principal); C25.9 Malignant neoplasm of pancreas, unspecified
CPT/HCPCS: 80053; 85025; 96413; 96417; J1642; J2469; J9201; J9264; Q0166

== ENCOUNTER 2021-04-18 07:41 | Outpatient (CLI) | payer MEDICARE, SELFPAY ==
[2021-04-18 08:12] VITALS: BMI 33.9
[2021-04-18 08:37] LABS: Basophils % 0.7 % (0.1-2.0); Eosinophils # 0.1 K/mm3 (0.0-0.4); Eosinophils % 2.6 % (0.1-12.0); Hematocrit 28.1 % (37.0-47.0); Hemoglobin 9.5 g/dL (12.2-16.2); Lymphocytes # 0.8 K/mm3 (0.7-4.5); Lymphocytes % 23.5 % (10-50); Mean Corpuscular HGB Conc 33.9 g/dL (31.8-35.4); Mean Corpuscular Hemoglobin 32.1 pg (27.0-31.2); Mean Corpuscular Volume 94.6 fl (81-99); Mean Platelet Volume 9.3 fl (7.4-10.4); Monocytes # 0.2 K/mm3 (0.1-1.0); Monocytes % 7.2 % (1.7-9.3); Neutrophils # 2.2 K/mm3 (1.8-7.8); Neutrophils % 65.9 % (37.0-80.0); Platelet Count 117 K/mm3 (142-424); Red Blood Count 2.97 M/mm3 (4.20-5.40); Red Cell Distribution Width 18.3 % (11.5-17.5); White Blood Count 3.3 K/mm3 (4.8-10.8)
[2021-04-18 08:47] LABS: Alanine Aminotransferase 53 U/L (12-78); Albumin Level 3.9 g/dl (3.5-5.0); Albumin/Globulin Ratio 1.4 (1.1-1.8); Alkaline Phosphatase 57 U/L (38-126); Anion Gap 10.7 mEq/L (5-15); Aspartate Amino Transferase 84 U/L (14-36); Bilirubin,Total 0.3 mg/dl (0.2-1.3); Blood Urea Nitrogen 12 mg/dl (7-17); Calcium 9.4 mg/dl (8.4-10.2); Carbon Dioxide 28 mmol/L (22.0-30.0); Chloride 106 mmol/L (98-107); Creatinine Clearance Estimated 59 mL/min (50-200); Estimated Glomerular Filt Rate 81 ml/min (>60); GFR (African American) 98 ML/MIN (>60); Globulin 2.7 g/dL (1.3-3.2); Glucose 151 mg/dl (74-100); Potassium 3.7 mmoL/L (3.5-5.1); Sodium 141 mmol/L (136-145); Total Protein,Serum 6.6 g/dl (6.3-8.2)
[2021-04-18 10:10] VITALS: BP 114/66; PULSE 91; RESP 16; TEMP 36.6; O2SAT 97
[2021-04-18 10:25] VITALS: BP 119/63; PULSE 89; RESP 16
[2021-04-18 10:40] VITALS: BP 122/56; PULSE 85; RESP 16
[2021-04-18 10:55] VITALS: BP 126/60; PULSE 87; RESP 16
[2021-04-18 11:10] VITALS: BP 115/55; PULSE 85; RESP 16
[2021-04-18 11:25] VITALS: BP 133/56; PULSE 85; RESP 16
== END 2021-04-18 11:48 | disposition home or self-care (01) ==
LOC: INF 07:42
PROVIDERS: PCP Emergency Medicine; Visit Provider Internal Medicine Medical Oncology
DX: Z51.11 Encounter for antineoplastic chemotherapy (principal); C25.9 Malignant neoplasm of pancreas, unspecified
CPT/HCPCS: 80053; 85025; 96413; 96417; J1642; J2469; J9201; J9264; Q0166

== ENCOUNTER 2021-08-17 18:01 | Inpatient (IN) | payer MEDICARE, SELFPAY ==
[2021-08-17] VITALS (9 sets, daily range): BP systolic 124–158; BP diastolic 41–110; PULSE 92–129; RESP 18–20; TEMP 36.8–37.5; O2SAT 96–100; BMI 27.0
--- NOTE | 2021-08-17 19:27 | PC.NURSE ---
Patient states that she takes medication to lower her heart rate but hasn't taken it today because she was afraid that she would throw it up.
[2021-08-17 19:32] LABS: Chloride 103 mmol/L (98-107); Sodium 137 mmol/L (136-145)
[2021-08-17 19:34] LABS: Amylase 206 U/L (30-110)
[2021-08-17 19:35] LABS: Alanine Aminotransferase 93 U/L (12-78); Albumin Level 4.3 g/dl (3.5-5.0); Albumin/Globulin Ratio 1.3 (1.1-1.8); Alkaline Phosphatase 312 U/L (38-126); Aspartate Amino Transferase 286 U/L (14-36); Basophils % 0.3 % (0.1-2.0); Bilirubin,Total 1.6 mg/dl (0.2-1.3); Blood Urea Nitrogen 24 mg/dl (7-17); Calcium 9.6 mg/dl (8.4-10.2); Carbon Dioxide 23 mmol/L (22.0-30.0); Creatinine Clearance Estimated 47 mL/min (50-200); Eosinophils % 0.4 % (0.1-12.0); Estimated Glomerular Filt Rate 60 ml/min (>60); GFR (African American) 73 ML/MIN (>60); Globulin 3.2 g/dL (1.3-3.2); Glucose 153 mg/dl (74-100); Hemoglobin 9.6 g/dL (12.2-16.2); Lymphocytes # 0.9 K/mm3 (0.7-4.5); Lymphocytes % 11.2 % (10-50); Magnesium 1.9 mg/dl (1.6-2.3); Mean Corpuscular HGB Conc 32.6 g/dL (31.8-35.4); Mean Corpuscular Hemoglobin 30.7 pg (27.0-31.2); Mean Corpuscular Volume 94.2 fl (81-99); Monocytes # 0.5 K/mm3 (0.1-1.0); Monocytes % 5.8 % (1.7-9.3); Neutrophils # 6.6 K/mm3 (1.8-7.8); Neutrophils % 82.4 % (37.0-80.0); Platelet Count 425 K/mm3 (142-424); Red Blood Count 3.12 M/mm3 (4.20-5.40); Red Cell Distribution Width 15.2 % (11.5-17.5); Total Protein,Serum 7.5 g/dl (6.3-8.2)
[2021-08-17 19:39] LABS: Hematocrit 29.4 % (37.0-47.0)
[2021-08-17 19:41] LABS: C-Reactive Protein 6.2 mg/L (0-4)
[2021-08-17 19:48] LABS: Lipase 1529 U/L (23-300)
--- NOTE | 2021-08-17 19:49 | PC.NURSE ---
Critical lipase of 1529 called from lab. notified. No new orders.
--- NOTE | 2021-08-17 19:50 | CT_ITS ---
PROCEDURE INFORMATION: Exam: CT Abdomen And Pelvis With Contrast Exam date and time: 08/17/2021 8:09 PM Age: 80 years old Clinical indication: Abdominal pain; Generalized TECHNIQUE: Imaging protocol: Computed tomography of the abdomen and pelvis with contrast. Radiation optimization: All CT scans at this facility use at least one of these dose optimization techniques: automated exposure control; mA and/or kV adjustment per patient size (includes targeted exams where dose is matched to clinical indication); or iterative reconstruction. Contrast material: ISOVUE; Contrast volume: 75 ml; Contrast route: IV; COMPARISON: CT ABDOMEN WO/W CON 11/01/2020 9:57 AM FINDINGS: Lungs: Cystic lung disease. Liver: Multiple subcentimeter hepatic hypodensities which are incompletely evaluated. Gallbladder and bile ducts: Intrahepatic bile duct dilation. Pancreas: Somewhat ill-defined hypodense pancreatic head mass measuring 3.8 x 3.4 cm with adjacent stranding and string pancreatic duct dilation measuring 15 mm. Spleen: There are multiple splenic calcifications likely on the basis of prior granulomatous exposure. Adrenal glands: No mass. Kidneys and ureters: Hypoattenuating renal lesions too small to characterize. No hydronephrosis. Stomach and bowel: No obstruction. No mucosal thickening. Appendix: No evidence of appendicitis. Intraperitoneal space: No free air. No significant fluid collection. Vasculature: Calcified atherosclerosis. No aneurysm. Lymph nodes: No enlarged lymph nodes. Urinary bladder: No acute abnormality. Reproductive: No acute abnormality. Bones/joints: Scoliosis. Soft tissues: No soft tissue swelling. IMPRESSION: Interval enlargement of the pancreatic head mass with upstream pancreatic and bile duct dilation which is concerning for malignancy until proven otherwise.
[2021-08-17 19:55] LABS: Procalcitonin 0.236 ng/mL (0.0-2.0)
[2021-08-17 20:04] LABS: Erythrocyte Sedimentation Rate > 140 mm/hr (0-30)
[2021-08-17 20:17] LABS: T4 (Thyroxine) 14.8 ug/dl (5.53-11.0)
[2021-08-17 20:31] LABS: Thyroid Stimulating Hormone 2.88 uIU/mL (0.465-4.68)
--- NOTE | 2021-08-17 21:31 | HMH.EDNVD ---
ED Disposition Clinical Impression: Pancreatitis, acute Qualifiers: Pancreatitis type: unspecified pancreatitis type Acute pancreatitis complication: no infection or necrosis Qualified Code(s): K85.90 - Acute pancreatitis without necrosis or infection, unspecified Hypothyroidism Qualifiers: Hypothyroidism type: acquired Qualified Code(s): E03.9 - Hypothyroidism, unspecified Pancreatic cancer Qualifiers: Pancreatic malignancy location: head of pancreas Qualified Code(s): C25.0 - Malignant neoplasm of head of pancreas Disposition: Admitted As Inpatient Condition on Discharge: Good - Critical Care Critical Care Time: No Attestation: On 08/17/21, the high probability of a clinically significant, sudden or life threatening deterioration of the following system(s) required my full and direct attention, intervention and personal management. The time I documented below is in addition to time spent performing reported procedures but includes the following listed in this critical care notation. Medical Decision Making - Medical Records Medical records reviewed: Yes: I reviewed the patient's medical records. - Cory Inquiry Pt receiving controlled substance: No Vital Signs: 08/17/21 19:11 08/17/21 19:30 08/17/21 20:00 Temperature 99.5 F Temperature Source Oral Pulse Rate 105 H 104 H Pulse Rate [Apical] 129 H Respiratory Rate 18 Blood Pressure 135/55 L 153/61 H Blood Pressure [Right Arm] 156/80 H Blood Pressure Mean 81 80 Blood Pressure Mean [Right Arm] 105 Blood Pressure Source [Right Arm] Automatic Cuff Blood Pressure Position [Right Arm] Sitting 02 Sat by Pulse Oximetry 98 97 99 Oxygen Delivery Method Room Air Room Air 08/17/21 20:30 08/17/21 21:00 08/17/21 21:31 Temperature Temperature Source Pulse Rate 98 H 92 H 111 H Pulse Rate [Apical] Respiratory Rate Blood Pressure 124/41 L 132/48 L 132/110 H Blood Pressure [Right Arm] Blood Pressure Mean 79 86 115 Blood Pressure Mean [Right Arm] Blood Pressure Source [Right Arm] Blood Pressure Position [Right Arm] 02 Sat by Pulse Oximetry 97 96 96 Oxygen Delivery Method Room Air Room Air Room Air 08/17/21 22:00 Temperature Temperature Source Pulse Rate 115 H Pulse Rate [Apical] Respiratory Rate Blood Pressure 158/71 H Blood Pressure [Right Arm] Blood Pressure Mean 127 Blood Pressure Mean [Right Arm] Blood Pressure Source [Right Arm] Blood Pressure Position [Right Arm] 02 Sat by Pulse Oximetry 97 Oxygen Delivery Method Room Air - Lab Data Lab results reviewed: Yes: I reviewed the patient's lab results. Lab Results 08/17/21 19:10: WBC 8.0, RBC 3.12 L, Hgb 9.6 L, Hct 29.4 L, MCV 94.2, MCH 30.7, MCHC 32.6, RDW 15.2, Plt Count 425 H, MPV 8.0, Neut % (Auto) 82.4 H, Lymph % (Auto) 11.2, [place] % (Auto) 5.8, Eos % (Auto) 0.4, Baso % (Auto) 0.3, Neut # (Auto) 6.6, Lymph # (Auto) 0.9, [place] # (Auto) 0.5, Eos # (Auto) 0.0, Baso # (Auto) 0.0, ESR > 140 H 08/17/21 19:10: Sodium 137, Potassium 4.0, Chloride 103, Carbon Dioxide 23, Anion Gap 15.0, BUN 24 H, Creatinine 0.90, Estimated Creat Clear 47, Estimated GFR 60, Est GFR ( Amer) 73, Glucose 153 H, Calcium 9.6, Magnesium 1.9, Total Bilirubin 1.6 H, AST 286 H, ALT 93 H, Alkaline Phosphatase 312 H, C-Reactive Protein 6.2 H, Total Protein 7.5, Albumin 4.3, Globulin 3.2, Albumin/Globulin Ratio 1.3, Amylase 206 H, Lipase 1529 H, Procalcitonin 0.236 08/17/21 19:10: TSH 2.88, Thyroxine (T4) 14.8 H Result diagrams: 08/17/21 19:10 08/17/21 19:10 Orders (Tests/Meds): ED MEDICATIONS Generic Name Dose Route Start Last Admin Trade Name Freq PRN Reason Stop Dose Admin Sodium Chloride 1,000 mls @ 999 mls/hr 08/17/21 19:30 08/17/21 19:22 Sod Chlor 0.9% 1000ml Bag IV 08/17/21 20:30 999 mls/hr .Q1H1M ANA MARÍA Administration Lactated Ringer's 1,000 mls @ 999 mls/hr 08/17/21 21:00 08/17/21 21:01 Lactated Ringer's 1000 Ml Bag IV 08/17/21 22:00 999 mls/
--- NOTE | 2021-08-17 21:45 | PC.NURSE ---
House notified for admission, Dhiraj Hearn- Acute Pancreatitis
[2021-08-18] VITALS (46 sets, daily range): BP systolic 92–150; BP diastolic 40–93; PULSE 83–110; RESP 14–18; TEMP 36.4–37.5; O2SAT 93–100
--- NOTE | 2021-08-18 04:55 | PC.NURSE ---
PT HAS RESTED WELL THIS SHIFT. NO ACUTE CHANGES FROM PREVIOUS ASSESSMENT. PT DENIES ANY PAIN AT THIS TIME. WILL CONTINUE TO MONITOR.
[2021-08-18 07:00] LABS: Basophils % 0.3 % (0.1-2.0); Eosinophils % 0.7 % (0.1-12.0); Lymphocytes % 28.8 % (10-50); Mean Corpuscular HGB Conc 32.7 g/dL (31.8-35.4); Mean Corpuscular Hemoglobin 30.7 pg (27.0-31.2); Mean Corpuscular Volume 93.8 fl (81-99); Mean Platelet Volume 8.2 fl (7.4-10.4); Monocytes # 0.4 K/mm3 (0.1-1.0); Monocytes % 10.4 % (1.7-9.3); Neutrophils % 59.8 % (37.0-80.0); Platelet Count 281 K/mm3 (142-424); Red Blood Count 2.02 M/mm3 (4.20-5.40); Red Cell Distribution Width 15.5 % (11.5-17.5); White Blood Count 3.4 K/mm3 (4.8-10.8)
[2021-08-18 07:08] LABS: Anion Gap 9.1 mEq/L (5-15); Blood Urea Nitrogen 29 mg/dl (7-17); Calcium 8.4 mg/dl (8.4-10.2); Carbon Dioxide 24 mmol/L (22.0-30.0); Chloride 108 mmol/L (98-107); Creatinine Clearance Estimated 47 mL/min (50-200); Estimated Glomerular Filt Rate 60 ml/min (>60); GFR (African American) 73 ML/MIN (>60); Glucose 89 mg/dl (74-100); Potassium 4.1 mmoL/L (3.5-5.1); Sodium 137 mmol/L (136-145)
--- NOTE | 2021-08-18 07:29 | P.CONPHA_ITS ---
[facility] Pharmacy VTE Monitoring - Patient Demographics Admission date: 08/17/21 Report Date: 08/18/21 Time: 07:29 Allergies/Adverse Reactions: Patient Allergies clindamycin [CLINDAMYCIN] Allergy (Unknown, Verified 07/01/21 10:44) NA-NAUSEA/VOMITING lomefloxacin [From MAXAQUIN] Allergy (Unknown, Verified 07/01/21 10:44) NA-NAUSEA nitrofurantoin [From MACROBID] Allergy (Unknown, Verified 07/01/21 10:44) NA-NAUSEA pseudoephedrine [From SUDAFED] Allergy (Unknown, Verified 07/01/21 10:44) SLIGHT N/V Sulfa (Sulfonamide Antibiotics) [SULFA (SULFONAMIDE ANTIBIOTICS)] Allergy (Unknown, Verified 07/01/21 10:44) NA-NAUSEA/VOMITING REVERT Allergy (Unknown, Uncoded 07/01/21 10:44) UNKNOWN REACTION Height: 1.55 m Weight: 64.864 kg Patient Problems: Current Active Problems (Last Updated 11/30/17 @ 13:31 by CELINE Rothman) Pancreatitis, acute (Acute) Pancreatic cancer (Acute) Hypothyroidism (Chronic) - VTE Risk Labs: VTE Related Lab Results Hgb 9.6 g/dL (12.2-16.2) L 08/17/21 19:10 Hct 29.4 % (37.0-47.0) L 08/17/21 19:10 Plt Count 425 K/mm3 (142-424) H 08/17/21 19:10 BUN 29 mg/dl (7-17) H 08/18/21 06:45 Creatinine 0.90 mg/dl (0.52-1.04) 08/18/21 06:45 Estimated Creat Clear 47 mL/min (50-200) 08/18/21 06:45 VTE Score: 3 VTE Risk Level: Low Risk - Prophylaxis VTE Prophylaxis Ordered?: Yes Types of VTE Prophylaxis: TEDS Knee High Location of Applied Device: Bilateral Lower Extremeties
--- NOTE | 2021-08-18 07:32 | PC.NURSE ---
REPORT GIVEN TO ZACHERY BAEZ
[2021-08-18 07:39] LABS: Hemoglobin 6.2 g/dL (12.2-16.2)
--- NOTE | 2021-08-18 08:00 | XR_ITS ---
FINAL REPORT CLINICAL HISTORY: sob, pt has pancreatic cancer, nausea. COMPARISON: Chest CT scan dated January 24, 2021 FINDINGS: SINGLE VIEW CHEST. A right IJ chest port catheter is seen with the tip in the SVC. The heart is normal in size. The mediastinum is unremarkable. There is abnormal opacity in the left upper lobe which is new from the prior CT scan. There is patchy airspace opacity in the right lung base which appears inflammatory. There is no pneumothorax. IMPRESSION: Probable right lower lobe pneumonia. Indeterminate density in the left upper lobe, favored to be inflammatory but in a patient with known malignancy, metastasis cannot be excluded. Follow-up chest CT recommended. Reviewed, Interpreted and Dictated by Marcus Sloan MD Transcribed by Thelma eBll Authenticated by Marcus Sloan MD on 08/18/2021 09:04:29 AM [facility]
--- NOTE | 2021-08-18 09:26 | SW/DCPLANNER ---
Addendum entered by Arlet Salmeron 08/19/21 09:48: Updated patient information has been faxed to Essence johnson/ [facility]. Patient is currently waiting on transfer to at this time. Addendum entered by Arlet Salmeron 08/18/21 13:10: Lou johnson/ [facility] stated that she spoke with this patient/family and they are willing to admit this patient once she discharges home. I will continue to follow up with: patient, MD and [facility]. Addendum entered by Arlet Salmeron 08/18/21 10:36: Jaz johnson/ Hospice has stated that Hospice Nurse (Lou) will be here between 11:30AM and 12PM today. Original Note: Dr Hearn and Annie spoke with this patient this AM regarding Hospice services. Patient stated that she would be willing to speak with Hospice regarding services they have to offer: patient information will be faxed to [facility] this AM. I will follow up with Essence johnson/ [facility] once patient information is reviewed.
--- NOTE | 2021-08-18 09:32 | PC.NURSE ---
0730 CRITICAL LAB RECEIVED FORM LASHA IN LAB. H&H 6.2.0. PT NAME AND VERIFIED. READ BACK AND REPEATED. CORRECT PATIENT 0735 MESSAGE LEFT WITH Ember LASSITER RN IN CARE MANAGEMENT TO REPORT CRITICAL LAB TO DR. CHRISTENSEN
--- NOTE | 2021-08-18 09:36 | PC.NURSE ---
0837 BLOOD CONSENT SIGNED AT THIS TIME
--- NOTE | 2021-08-18 10:30 | HMH.PHAINT ---
MEDICATION RECONCILIATION COMPLETED ON PATIENT USING EXTERNAL FILL HISTORY FROM PHARMACY. -EMORY SHIPLEY, MARSHALD
--- NOTE | 2021-08-18 10:31 | HMH.HP ---
*Admission Date: 08/17/21 *Chief complaint: weakness *History of present illness: 80-year-old female with known diagnosis of pancreatic cancer. She has been undergoing chemotherapy and and radiation for lung and pancreas ca. Pt states she was also in consideration has been given for possible resection. She has had diminished appetite with abdominal pain, nausea and vomiting. Pt states she came to ed after a episode of abd pain and vomiting. She has had some problems with constipation requiring laxatives to help have BM. She was found to have decrease in her hemoglobin today 1 unit of packed red cells. pt wants to talk with hospice. pt admitted for pain,nausea and vomiting. [facility] History I have reviewed the patient's past medical history: Yes Medical History: Reports:: Aneurysm, Atrial Fibrillation, Cancer (PANCREATIC), Chronic Obstructive Pulmonary Disease (COPD), Coronary Artery Disease, Hyperlipidemia, Hypertension, Lung Disease Denies:: Diabetes Mellitus Type 1, Diabetes Mellitus Type 2, Internal Pacemaker, MRSA, Seizures *Have you ever received a pneumonia vaccine?: Yes *Have you received a flu vaccine this season?: Yes Other Medical History: Reports: Arthritis, Cataracts, Chemotherapy, Hypothyroidism, Radiation Therapy, Thyroid Disease, Other Laterality Cases: Left: Other Other Surgeries: Yes: Angioplasty, Appendectomy, Cancer Surgery, Cardiac Catheterization, Cardiac Surgery, Cholecystectomy, Coronary Stent, Dilation and Curettage, EGD, Hysterectomy-Total, Hysterectomy-Partial, Tubal Ligation, Other. No: Colonoscopy, Pacemaker. Comment Only: Other Valve Replacement (left eye, right index finger) Amputation: No Fractures: No - *Social History Smoking Status: Former smoker Tobacco Type: cigarettes # Packs/Day (cigarettes): 1 #Yrs smoked (if former smoker): 11 Alcohol Intake: never Alcohol Intake Frequency:: other Substance Use Type: denies use *Occupational Status:: retired Housing: apartment Household Members: other *Travel in the last 8 weeks: None Family Hx:: Unable to obtain Review of Systems - Review of Systems Review of systems:: pertinent systems reviewed and negative unless documented below - Constitutional Denies body ache(s) - Eyes Denies blurry vision - ENT Denies bleeding gums - *Cardiovascular Denies chest pain at rest - *Respiratory Denies change in phlegm color - *Gastrointestinal Reports abdominal pain, Reports nausea, Reports vomiting - *Genitourinary Denies urinary incontinence, Denies urinary urgency - *Musculoskeletal Denies abnormal walking - Integumentary/Breasts Denies hair loss - *Neurologic Reports weakness, Denies abnormal hearing, Denies headache(s), Denies seizure-like activity - Psychiatric Denies lack of enjoyment - Endocrine Denies excessive sweating - Hematologic/Lymphatic Denies easy bruising - Allergic/Immunologic Denies itchy eyes Meds Home Medications Medication Instructions Recorded Confirmed Type Aspirin [Low Dose Aspirin EC] 81 mg PO DAILY 04/20/18 08/17/21 History albuterol sulfate 90 mcg/actuation 1 inh INHALATION QID PRN #8.5 g 10/29/20 08/17/21 Rx aerosol inhaler Levothyroxine Sodium [Synthroid 25 mcg PO DAILY 12/24/20 08/17/21 History 25mcg (0.025mg) tablet] Umeclidinium Brm/Vilanterol Tr 1 puff IH DAILY 12/24/20 08/18/21 History [Anoro Ellipta] Prochlorperazine Maleate 10 mg PO Q6HP PRN 02/28/21 08/17/21 History [Compazine 10mg tablet] Spironolactone [Spironolactone 25 mg PO Q48H 02/28/21 08/18/21 History 25mg Tablet] polyethylene glycoL 3350 [Miralax 17 gm PO DAILY 02/28/21 08/17/21 History 17gm Packet] Lisinopril/Hydrochlorothiazide 1 tab PO DAILY 04/03/21 08/17/21 History [Lisinopril-Hctz 20-25 mg Tab] Clopidogrel Bisulfate [Plavix] 75 mg PO DAILY 08/17/21 08/18/21 History Hydrocod/Acet 5/325 mg [[place] 1 tab PO BID 08/17/21 08/17/21 History 5/325mg tablet] Isosorbide Mononitrate [Isosor
[2021-08-18 10:34] LABS: Coronavirus 19, PCR Not Detected (NotDetected); Influenza A, PCR Not Detected (NotDetected); Influenza B, PCR Not Detected (NotDetected)
[2021-08-18 10:44] LABS: Occult Blood,Stool Positive (Negative)
--- NOTE | 2021-08-18 11:03 | PC.NURSE ---
HOSPICE SPEAKING WITH PT AND FAMILY
--- NOTE | 2021-08-18 12:31 | PC.NURSE ---
1230 SPOKE WITH BJ IN GENERAL SURGERY OFFICE, NOTIFIED OF SURGERY CONSULT. WILL NOTIFY ON-CALL SURGEON FOR CONSULT
--- NOTE | 2021-08-18 13:39 | PC.NURSE ---
4104 DR. PHILLIPS SPEAKING WITH PT AND FAMILY
[2021-08-18 13:40] LABS: INR 1.08 (0.9-1.1); Prothrombin Time 12.1 seconds (10.1-12.5)
--- NOTE | 2021-08-18 13:50 | HMH.GSCON ---
*Admission Date: 08/17/21 *Reason for consult:: Vomiting of blood *History of present illness: Patient is a 80-year-old female with known diagnosis of pancreatic cancer. She also has diagnosis of lung squamous cell carcinoma. This was incidentally found on imaging. She had endoscopic ultrasound performed with biopsy. She has been undergoing chemotherapy and consideration has been given for possible resection. She has had diminished appetite with some occasional abdominal pain. She has had nausea and vomiting. That this became ongoing yesterday and she presented to the emergency department where she was seen and evaluated and admitted. She has had some problems with constipation requiring laxatives. She was found to have decrease in her hemoglobin today. Surgical consultation was ordered this afternoon. Review of Systems - Review of Systems Review of systems:: pertinent systems reviewed and negative unless documented below - *Neurologic Reports weakness, Denies headache(s), Denies seizure-like activity [facility] History I have reviewed the patient's past medical history: Yes Medical History: Reports:: Aneurysm, Atrial Fibrillation, Cancer (PANCREATIC), Chronic Obstructive Pulmonary Disease (COPD), Coronary Artery Disease, Hyperlipidemia, Hypertension, Lung Disease Denies:: Diabetes Mellitus Type 1, Diabetes Mellitus Type 2, Internal Pacemaker, MRSA, Seizures *Have you ever received a pneumonia vaccine?: Yes *Have you received a flu vaccine this season?: Yes Other Medical History: Reports: Arthritis, Cataracts, Chemotherapy, Hypothyroidism, Radiation Therapy, Thyroid Disease, Other Laterality Cases: Left: Other Other Surgeries: Yes: Angioplasty, Appendectomy, Cancer Surgery, Cardiac Catheterization, Cardiac Surgery, Cholecystectomy, Coronary Stent, Dilation and Curettage, EGD, Hysterectomy-Total, Hysterectomy-Partial, Tubal Ligation, Other. No: Colonoscopy, Pacemaker. Comment Only: Other Valve Replacement (left eye, right index finger) Amputation: No Fractures: No - *Social History Smoking Status: Former smoker Tobacco Type: cigarettes # Packs/Day (cigarettes): 1 #Yrs smoked (if former smoker): 11 Alcohol Intake: never Alcohol Intake Frequency:: other Substance Use Type: denies use *Occupational Status:: retired Housing: apartment Household Members: other *Travel in the last 8 weeks: None Family Hx:: Unable to obtain Meds Home Medications Medication Instructions Recorded Confirmed Type Aspirin [Low Dose Aspirin EC] 81 mg PO DAILY 04/20/18 08/17/21 History albuterol sulfate 90 mcg/actuation 1 inh INHALATION QID PRN #8.5 g 10/29/20 08/17/21 Rx aerosol inhaler Levothyroxine Sodium [Synthroid 25 mcg PO DAILY 12/24/20 08/17/21 History 25mcg (0.025mg) tablet] Umeclidinium Brm/Vilanterol Tr 1 puff IH DAILY 12/24/20 08/18/21 History [Anoro Ellipta] Prochlorperazine Maleate 10 mg PO Q6HP PRN 02/28/21 08/17/21 History [Compazine 10mg tablet] Spironolactone [Spironolactone 25 mg PO Q48H 02/28/21 08/18/21 History 25mg Tablet] polyethylene glycoL 3350 [Miralax 17 gm PO DAILY 02/28/21 08/17/21 History 17gm Packet] Lisinopril/Hydrochlorothiazide 1 tab PO DAILY 04/03/21 08/17/21 History [Lisinopril-Hctz 20-25 mg Tab] Clopidogrel Bisulfate [Plavix] 75 mg PO DAILY 08/17/21 08/18/21 History Hydrocod/Acet 5/325 mg [[place] 1 tab PO BID 08/17/21 08/17/21 History 5/325mg tablet] Isosorbide Mononitrate [Isosorbide 30 mg PO DAILY 08/17/21 08/18/21 History Mononitrate ER] Omeprazole 40 mg PO DAILY 08/17/21 08/18/21 History Rosuvastatin Calcium 20 mg PO DAILY 08/17/21 08/18/21 History Metoprolol Succinate [Metoprolol 50 mg PO HS 08/18/21 08/18/21 History Succinate 100mg Tablet*] Metoprolol Succinate [Metoprolol 100 mg PO DAILY 08/18/21 08/18/21 History Succinate 100mg Tablet*] Allergies Allergy/AdvReac Type Severity Reaction Status Date / Time clindamycin [CLINDAMYCIN] Allergy Unknown NA-NAUS
--- NOTE | 2021-08-18 14:09 | PC.NURSE ---
1410 REPORT GIVEN TO Deanne MAN RN. PT TO PRE-OP AT THIS TIME
--- NOTE | 2021-08-18 14:33 | P.PCN_ITS ---
- Procedure: Date: 08/18/21 Patient Date of :: 1940 Procedure Performed:: Esophagogastroduodenoscopy Indications:: Patient is a 80-year-old female with known diagnosis of pancreatic cancer. She also has diagnosis of lung squamous cell carcinoma. This was incidentally found on imaging. She had endoscopic ultrasound performed with biopsy. She has been undergoing chemotherapy and consideration has been given for possible resection. She has had diminished appetite with some occasional abdominal pain. She has had nausea and vomiting. That this became ongoing yesterday and she presented to the emergency department where she was seen and evaluated and admitted. She has had some problems with constipation requiring laxatives. She was found to have decrease in her hemoglobin today. Surgical consultation was ordered this afternoon. Performing Provider:: Ramsey Johnson MD Referring Provider:: Broderick Hearn MD Sedation:: MAC sedation Procedure:: Consent was obtained and patient was taken to endoscopy procedure room. She was positioned in lateral decubitus position. Adequate intravenous sedation was achieved with anesthesia titration of propofol. Olympus endoscope was inserted via the oropharynx. There was mild tortuosity of the esophagus. Gastroesophageal junction was encountered at approximately 38 cm from the incisors. Stomach was cannulated and insufflated. Retroflexion revealed small hiatal hernia. She had some diffuse fundic gland polyps. Overall stomach appeared relatively unremarkable. There was some abnormality of the antrum possibly from extrinsic mass-effect. However the pylorus was traversed. Duodenal bulb appeared unremarkable. Endoscope was advanced well into the distal duodenum and probably proximal jejunum. There was some mild bloody liquid fluid present. Initially no obvious source of the bleeding. Endoscope was slowly withdrawn and careful surveillance was carried out in attempt to l ocate the ampulla of Vater. This was ultimately identified and there was minimal blood cot present with a very faint trickle of blood from the biliary tree consistent with hemobilia. Endoscope was withdrawn as the stomach was desufflated. Findings:: Mild tortuosity of the esophagus Gastroesophageal junction at 38 cm from the incisors Small hiatal hernia Gastric fundic gland polyps Hemobilia from the ampulla Vater. 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 Recommend immediate transfer for intervention. Complications:: None immediately apparent Estimated blood obtained (mL): 0
--- NOTE | 2021-08-18 14:50 | PC.NURSE ---
1442 REPORT RECEIVED FROM Ember JONES RN
--- NOTE | 2021-08-18 15:26 | PC.NURSE ---
1522 CRITICAL LAB H&H 7.0/21.0. PT NAME AND VERIFIED WITH LORI FROM LAB. CORRECT PT. READ BACK AND VERIFIED. 1524 MESSAGE LEFT WITH RALPH CARLSON. NO NEW ORDERS AT THIS TIME. WORKING ON TRANSFER OF PT
--- NOTE | 2021-08-18 15:44 | PC.NURSE ---
1543 ORDERS RECEIVED FROM RALPH CARLSON TO TRANSFUSE 2 UNITS PRBCS
--- NOTE | 2021-08-18 17:25 | HMH.DCSUM ---
General - General Admission date:: 08/17/21 <Linwood Payton - 08/19/21 19:57> 08/17/21 <marlinKo camalee - 08/18/21 17:25> Discharge date: 08/18/21 <Ko Hastingsalee - 08/18/21 17:25> HPI HPI: 80-year-old female with known diagnosis of pancreatic cancer. She has been undergoing chemotherapy and and radiation for lung and pancreas ca. Pt states she was also in consideration has been given for possible resection. She has had diminished appetite with abdominal pain, nausea and vomiting. Pt states she came to ed after a episode of abd pain and vomiting. She has had some problems with constipation requiring laxatives to help have BM. She was found to have decrease in her hemoglobin today 1 unit of packed red cells. pt wants to talk with hospice. pt admitted for pain,nausea and vomiting. <marlinKo camalee - 08/18/21 17:25> Hospital Course Hospital Course: Abnormal Lab Results 08/17/21 19:10: RBC 3.12 L, Hgb 9.6 L, Hct 29.4 L, Plt Count 425 H, Neut % (Auto) 82.4 H, ESR > 140 H 08/17/21 19:10: BUN 24 H, Glucose 153 H, Total Bilirubin 1.6 H, AST 286 H, ALT 93 H, Alkaline Phosphatase 312 H, C-Reactive Protein 6.2 H, Amylase 206 H, Lipase 1529 H 08/17/21 19:10: Thyroxine (T4) 14.8 H 08/18/21 06:45: WBC 3.4 L D, RBC 2.02 L D, Hgb 6.2 L* D, Hct 19.0 L*, Quay % (Auto) 10.4 H 08/18/21 06:45: Chloride 108 H, BUN 29 H 08/18/21 09:05: Stool Occult Blood Positive A 08/18/21 09:21: Crossmatch (AHG) See Detail 08/18/21 14:55: Hgb 7.0 L, Hct 21.0 L Abnormal Lab Results 08/20/21 06:54: RBC 2.61 L D, Hgb 8.2 L, Hct 25.1 L, MCH 31.5 H, Lymph # (Auto) 0.6 L 08/20/21 06:54: Chloride 111 H, BUN 22 H, Glucose 103 H, Total Bilirubin 2.7 H, AST 129 H D, Alkaline Phosphatase 227 H, Total Protein 5.3 L D, Albumin 3.0 L Ordering Physician: Harinder Hearn MD Date of Service: 08/17/21 Procedure(s): CT abdomen pelvis w con Accession Number(s): [id number] cc: Harinder Hearn MD; John San MD~ PROCEDURE INFORMATION: Exam: CT Abdomen And Pelvis With Contrast Exam date and time: 08/17/2021 8:09 PM Age: 80 years old Clinical indication: Abdominal pain; Generalized TECHNIQUE: Imaging protocol: Computed tomography of the abdomen and pelvis with contrast. Radiation optimization: All CT scans at this facility use at least one of these dose optimization techniques: automated exposure control; mA and/or kV adjustment per patient size (includes targeted exams where dose is matched to clinical indication); or iterative reconstruction. Contrast material: ISOVUE; Contrast volume: 75 ml; Contrast route: IV; COMPARISON: CT ABDOMEN WO/W CON 11/01/2020 9:57 AM FINDINGS: Lungs: Cystic lung disease. Liver: Multiple subcentimeter hepatic hypodensities which are incompletely evaluated. Gallbladder and bile ducts: Intrahepatic bile duct dilation. Pancreas: Somewhat ill-defined hypodense pancreatic head mass measuring 3.8 x 3.4 cm with adjacent stranding and string pancreatic duct dilation measuring 15 mm. Spleen: There are multiple splenic calcifications likely on the basis of prior granulomatous exposure. Adrenal glands: No mass. Kidneys and ureters: Hypoattenuating renal lesions too small to characterize. No hydronephrosis. Stomach and bowel: No obstruction. No mucosal thickening. Appendix: No evidence of appendicitis. Intraperitoneal space: No free air. No significant fluid collection. Vasculature: Calcified atherosclerosis. No aneurysm. Lymph nodes: No enlarged lymph nodes. Urinary bladder: No acute abnormality. Reproductive: No acute abnormality. Bones/joints: Scoliosis. Soft tissues: No soft tissue swelling. IMPRESSION: Interval enlargement of the pancreatic head mass with upstream pancreatic and bile duct dilation which is concerning for malignancy until proven otherwise. Ordering Physician: Harinder Hearn MD Date of Service: 08/18/21 Procedure(s): XR chest portable Ac
[2021-08-19] VITALS (7 sets, daily range): BP systolic 103–141; BP diastolic 49–73; PULSE 80–104; RESP 17–20; TEMP 36.5–37.4; O2SAT 95–98; BMI 26.9
[2021-08-19 02:26] LABS: Hematocrit 27.1 % (37.0-47.0)
[2021-08-19 02:32] LABS: Hemoglobin 9.4 g/dL (12.2-16.2)
--- NOTE | 2021-08-19 08:15 | HMH.GSPN ---
Subjective Narrative: Patient feels well at this time. No major complaints. On a clear liquid diet Progress Note: A&P (1) Pancreatic cancer Status: Acute (2) Pancreatitis, acute Status: Acute (3) Hypothyroidism Status: Chronic Assessment and Plan for All Diagnoses:: Patient had findings of visible active hemobilia by EGD yesterday, likely pancreatic source. Awaiting transfer for definitive management, either interventional radiology or surgically. Until then, the most this facility has to offer is to monitor hemoglobin and continue to transfuse when needed. Exam Vital signs and Labs for Last 24 Hours: Temp Pulse Resp BP Pulse Ox 98.3 F 80 17 106/58 L 96 08/19/21 01:54 08/19/21 01:54 08/19/21 01:54 08/19/21 01:54 08/19/21 01:54 Laboratory Results - last 24 hr 08/17/21 22:00: SARS-CoV-2 (PCR) Not detected, Influenza A Untype (PCR) Not detected, Influenza Type B (PCR) Not detected 08/18/21 06:45: Blood Type Confirm O Positive 08/18/21 09:05: Stool Occult Blood Positive A 08/18/21 09:21: Blood Type O Positive, Antibody Screen Negative, Crossmatch (AHG) See Detail 08/18/21 13:18: PT 12.1, INR 1.08 08/18/21 14:55: Hgb 7.0 L, Hct 21.0 L 08/19/21 01:50: Hgb 9.4 L D, Hct 27.1 L I & O for Last 24 hours: Intake & Output 08/16/21 08/17/21 08/18/21 08/19/21 11:59 11:59 11:59 11:59 Intake Total 428 / 428 277.64 / 277.64 Balance 428 / 428 277.64 / 277.64 Weight 143 lb
--- NOTE | 2021-08-19 09:36 | HMH.ACPN2 ---
Internal Medicine - PN: Subj *Date: 08/19/21 *Time: 19:11 Interval history: 80-year-old female patient sitting up in chair in no visible distress. She denies any chest pain or shortness of breath during night. She reports her pain is at a tolerable level. Yesterday hemoglobin 7.0 she received 2 units of packed red blood cells this morning hemoglobin is 9.4. EGD was performed by general surgery today yesterday and revealed: Findings:: Mild tortuosity of the esophagus Gastroesophageal junction at 38 cm from the incisors Small hiatal hernia Gastric fundic gland polyps Hemobilia from the ampulla Vater. 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 Recommend immediate transfer for intervention. Call was placed to [facility], patient is awaiting bed at has been accepted to the surgical Gold Team Exam Vital signs and Labs for Last 24 Hours: Temp Pulse Resp BP Pulse Ox 98.3 F 80 17 106/58 L 96 08/19/21 01:54 08/19/21 01:54 08/19/21 01:54 08/19/21 01:54 08/19/21 01:54 Laboratory Results - last 24 hr 08/17/21 22:00: SARS-CoV-2 (PCR) Not detected, Influenza A Untype (PCR) Not detected, Influenza Type B (PCR) Not detected 08/18/21 06:45: Blood Type Confirm O Positive 08/18/21 09:05: Stool Occult Blood Positive A 08/18/21 09:21: Blood Type O Positive, Antibody Screen Negative, Crossmatch (AHG) See Detail 08/18/21 13:18: PT 12.1, INR 1.08 08/18/21 14:55: Hgb 7.0 L, Hct 21.0 L 08/19/21 01:50: Hgb 9.4 L D, Hct 27.1 L I & O for Last 24 hours: Intake & Output 08/16/21 08/17/21 08/18/21 08/19/21 23:59 23:59 23:59 23:59 Intake Total 705 / 705 0.64 / 0.64 Balance 705 / 705 0.64 / 0.64 Weight 143 lb 142 lb 13.753 oz - Constitutional no acute distress - *Routine HEENT Exam Head: Present: normocephalic Eye: Present: EOMI ENT: Present: mucous membranes moist - *Routine Neck Exam Present: trachea midline. Absent: tracheal deviation - *Routine Respiratory Exam Present: CTA bilaterally. Absent: accessory muscle use - *Routine Cardiovascular Exam Present: RRR - *Routine Abdominal Exam Present: soft, normoactive bowel sounds, tenderness. Absent: firm - *Routine Extremities Exam Present: full ROM. Absent: cyanosis, clubbing, edema - *Routine Skin Exam Present: intact, dry. Absent: cyanosis, erythema - *Routine Neurological Exam Present: alert, oriented X3, altered mental status. Absent: motor deficit - Routine Psychiatric Exam Present: normal affect, normal thought process. Absent: auditory hallucinations Assessment and Plan (1) Pancreatic cancer Status: Acute Qualifiers: Pancreatic malignancy location: head of pancreas Qualified Code(s): C25.0 - Malignant neoplasm of head of pancreas Category: Medical Code(s): C25.9 - Malignant neoplasm of pancreas, unspecified (2) Pancreatitis, acute Status: Acute Qualifiers: Pancreatitis type: unspecified pancreatitis type Acute pancreatitis complication: no infection or necrosis Qualified Code(s): K85.90 - Acute pancreatitis without necrosis or infection, unspecified Category: Medical Code(s): K85.90 - Acute pancreatitis without necrosis or infection, unspecified (3) Hypothyroidism Status: Chronic Qualifiers: Hypothyroidism type: acquired Qualified Code(s): E03.9 - Hypothyroidism, unspecified Category: Medical Code(s): E03.9 - Hypothyroidism, unspecified - Assessment and plan all Dx Assessment and Plan for all problems:: Rounded with Dr. Hearn, all orders per Dr. Hearn: 1. General surgery following 2. Monitor H/H 3. Awaiting bed at , has been accepted
--- NOTE | 2021-08-19 10:00 | PC.NURSE ---
Report given to [facility] surgery nurse r/t pt being on waiting list for a bed. States that pt will be listed as high priortity at this time.
--- NOTE | 2021-08-19 12:21 | PC.NURSE ---
Pt reports that Morphine has not been very effective with pain control. Informed pt that I would attempt to get medication or dosage of medication changed. Message left with nurse at Dhiraj's office for APRN. Ina V/USanna and states that she will relay message.
--- NOTE | 2021-08-19 14:38 | PC.NURSE ---
No call or orders received yet for different pain med or dosage of current med. 2nd message left with Dhiraj's office r/t pain medication.
--- NOTE | 2021-08-19 17:10 | PC.NURSE ---
Pt has had complaints of abdominal pain and intermittent nausea most of the shift. Pain has not been completely relieved by prescribed pain medication (Morphine 2mg IV q 4hrs prn). Attempted to get medication and/or dosage changed, but did not receive a return phone call from [employer]. She did report some relief, just not complete relief. BS remain active x 4 quads. Abdomen remains slightly distended in appearance, soft but tender to palpate. Reports occasional belching and passing flatus. IV LR continues to infuse at KVO (#20 left AC)... VS stable, afebrile. Still awaiting bed opening at [facility]. Continues clear liquid diet. Pt's son has remained at bs most of the shift.
[2021-08-20 04:55] VITALS: BP 128/61; PULSE 102; RESP 18; TEMP 36.7; O2SAT 95
--- NOTE | 2021-08-20 05:24 | PC.NURSE ---
0455 RN reassessment completed at this time. Pt has rested well throughout the night, reports getting up around 0430 to perform partial bath at the sink. She has been independent with ADLs, encouraged to request assistance as needed. Pt declines linen change this AM. Pt reports that abdominal pain and nausea are increasing, requesting PRN medication. Medicated with oxy 10 mg PO and phenergan 12.5 mg PO. Pt reports that oxycodone has improved abdominal pain better than IV morphine that she was previously receiving. Lung sounds CTA, no c/o SOA. Abd soft, mildly distended in appearance and tender throughout, BS active in all quads. Pt reports voiding without difficulty throughout the night, no BM. VSS. Sitting up in bed watching television, soft drink provided as requested. Call light within reach, room door open as requested by pt. Will continue to monitor.
[2021-08-20 07:22] LABS: Alanine Aminotransferase 67 U/L (12-78); Albumin/Globulin Ratio 1.3 (1.1-1.8); Alkaline Phosphatase 227 U/L (38-126); Anion Gap 7.8 mEq/L (5-15); Aspartate Amino Transferase 129 U/L (14-36); Bilirubin,Total 2.7 mg/dl (0.2-1.3); Blood Urea Nitrogen 22 mg/dl (7-17); Calcium 8.5 mg/dl (8.4-10.2); Carbon Dioxide 25 mmol/L (22.0-30.0); Chloride 111 mmol/L (98-107); Creatinine Clearance Estimated 47 mL/min (50-200); Estimated Glomerular Filt Rate 81 ml/min (>60); GFR (African American) 98 ML/MIN (>60); Globulin 2.3 g/dL (1.3-3.2); Glucose 103 mg/dl (74-100); Potassium 3.8 mmoL/L (3.5-5.1); Sodium 140 mmol/L (136-145); Total Protein,Serum 5.3 g/dl (6.3-8.2)
[2021-08-20 07:27] LABS: Basophils % 0.1 % (0.1-2.0); Eosinophils # 0.2 K/mm3 (0.0-0.4); Eosinophils % 3.1 % (0.1-12.0); Hematocrit 25.1 % (37.0-47.0); Hemoglobin 8.2 g/dL (12.2-16.2); Lymphocytes # 0.6 K/mm3 (0.7-4.5); Lymphocytes % 12.2 % (10-50); Mean Corpuscular HGB Conc 32.8 g/dL (31.8-35.4); Mean Corpuscular Hemoglobin 31.5 pg (27.0-31.2); Mean Corpuscular Volume 96.1 fl (81-99); Mean Platelet Volume 8.1 fl (7.4-10.4); Monocytes # 0.4 K/mm3 (0.1-1.0); Monocytes % 7.7 % (1.7-9.3); Neutrophils # 3.9 K/mm3 (1.8-7.8); Neutrophils % 76.9 % (37.0-80.0); Platelet Count 204 K/mm3 (142-424); Red Blood Count 2.61 M/mm3 (4.20-5.40); Red Cell Distribution Width 15.4 % (11.5-17.5); White Blood Count 5.1 K/mm3 (4.8-10.8)
[2021-08-20 08:00] VITALS: BP 118/69; PULSE 92; RESP 17; TEMP 36.4; O2SAT 93
--- NOTE | 2021-08-20 08:12 | PC.NURSE ---
Infusion nurse here to access pt's port.
--- NOTE | 2021-08-20 08:40 | PC.NURSE ---
Nurse from surgery team called to check on update on pt. Report given.
--- NOTE | 2021-08-20 08:45 | PC.NURSE ---
Port accessed. Needle can be used for up to a week before changing. Once port is no longer accessed, flush with 5mls of Heparin.
--- NOTE | 2021-08-20 10:33 | HMH.ACPN2 ---
Internal Medicine - PN: Subj *Date: 08/20/21 *Time: 09:00 Interval history: pt states she having n/v Exam Vital signs and Labs for Last 24 Hours: Temp Pulse Resp BP Pulse Ox 97.6 F 92 H 17 118/69 93 L 08/20/21 08:00 08/20/21 08:00 08/20/21 08:00 08/20/21 08:00 08/20/21 08:00 Laboratory Results - last 24 hr 08/20/21 06:54: WBC 5.1 D, RBC 2.61 L D, Hgb 8.2 L, Hct 25.1 L, MCV 96.1, MCH 31.5 H, MCHC 32.8, RDW 15.4, Plt Count 204 D, MPV 8.1, Neut % (Auto) 76.9, Lymph % (Auto) 12.2, Saline % (Auto) 7.7, Eos % (Auto) 3.1, Baso % (Auto) 0.1, Neut # (Auto) 3.9, Lymph # (Auto) 0.6 L, Saline # (Auto) 0.4, Eos # (Auto) 0.2, Baso # (Auto) 0.0 08/20/21 06:54: Sodium 140, Potassium 3.8, Chloride 111 H, Carbon Dioxide 25, Anion Gap 7.8, BUN 22 H, Creatinine 0.70 D, Estimated Creat Clear 47, Estimated GFR 81, Est GFR ( Amer) 98 D, Glucose 103 H, Calcium 8.5, Total Bilirubin 2.7 H, AST 129 H D, ALT 67 D, Alkaline Phosphatase 227 H, Total Protein 5.3 L D, Albumin 3.0 L, Globulin 2.3, Albumin/Globulin Ratio 1.3 I & O for Last 24 hours: Intake & Output 08/17/21 08/18/21 08/19/21 08/20/21 11:59 11:59 11:59 11:59 Intake Total 428 / 428 277.64 / 277.64 Balance 428 / 428 277.64 / 277.64 Weight 143 lb 142 lb 13.753 oz - Constitutional no acute distress - *Routine HEENT Exam Head: Present: normocephalic Eye: Present: PERRL ENT: Present: mucous membranes moist - *Routine Neck Exam Present: supple, full ROM - *Routine Respiratory Exam Present: CTA bilaterally - *Routine Cardiovascular Exam Present: RRR - *Routine Abdominal Exam Present: soft, normoactive bowel sounds, tenderness - *Routine Extremities Exam Present: normal capillary refill. Absent: cyanosis, clubbing, edema - *Routine Skin Exam Present: warm. Absent: rash - *Routine Neurological Exam Present: alert, oriented X3 Assessment and Plan (1) Pancreatic cancer Status: Acute Qualifiers: Pancreatic malignancy location: head of pancreas Qualified Code(s): C25.0 - Malignant neoplasm of head of pancreas Category: Medical Code(s): C25.9 - Malignant neoplasm of pancreas, unspecified (2) Pancreatitis, acute Status: Acute Qualifiers: Pancreatitis type: unspecified pancreatitis type Acute pancreatitis complication: no infection or necrosis Qualified Code(s): K85.90 - Acute pancreatitis without necrosis or infection, unspecified Category: Medical Code(s): K85.90 - Acute pancreatitis without necrosis or infection, unspecified (3) Hypothyroidism Status: Chronic Qualifiers: Hypothyroidism type: acquired Qualified Code(s): E03.9 - Hypothyroidism, unspecified Category: Medical Code(s): E03.9 - Hypothyroidism, unspecified - Assessment and plan all Dx Assessment and Plan for all problems:: rounded with dr hsieh all orders per dr hsieh waiting on bed at for transfer stable h/h
[2021-08-20 12:00] VITALS: BP 151/78; PULSE 92; RESP 17; TEMP 36.7; O2SAT 96
--- NOTE | 2021-08-20 15:14 | PC.NURSE ---
Notified of bed opening at . Report given to Tammy EASLEY RN on .
--- NOTE | 2021-08-20 15:20 | PC.NURSE ---
Pt and pt's family at (x2) notified of room opening and pt being transferred soon. Also reviewed [facility]'s visitation policy at this time. V/U.
--- NOTE | 2021-08-20 15:40 | PC.NURSE ---
Annie Hastings notified of bed availability at [facility]. V/U. States will put in discharge order.
--- NOTE | 2021-08-20 16:16 | PC.NURSE ---
[facility] called and notified of need for transfer. V/U. States will be here shortly.
== END 2021-08-20 17:00 | disposition short-term general hospital (02) | DRG 439 ==
LOC: ER 20:46 → OB 21:58
PROVIDERS: Emergency Medicine; Nurse Practitioner Family; Surgery; Admitting Provider Emergency Medicine; Emergency Provider Emergency Medicine; PCP Emergency Medicine; Visit Provider Emergency Medicine
PROC: 0DJ08ZZ Inspection of Upper Intestinal Tract, Via Natural or Artificial Opening Endoscopic (ICD-10-PCS; CPT 43235; principal; 2021-08-18 14:00)
DX: K85.90 Acute pancreatitis without necrosis or infection, unspecified (principal); C25.0 Malignant neoplasm of head of pancreas; C34.90 Malignant neoplasm of unspecified part of unspecified bronchus or lung; E03.9 Hypothyroidism, unspecified; I48.91 Unspecified atrial fibrillation; J44.9 Chronic obstructive pulmonary disease, unspecified; I25.10 Atherosclerotic heart disease of native coronary artery without angina pectoris; E78.5 Hyperlipidemia, unspecified; I10 Essential (primary) hypertension; Z95.5 Presence of coronary angioplasty implant and graft; Z87.891 Personal history of nicotine dependence; M19.90 Unspecified osteoarthritis, unspecified site
CPT/HCPCS: 43235; 36415; 71045; 74177; 80048; 80053; 82150; 82272; 83690; 83735; 84145; 84436; 84443; 85014; 85018; 85025; 85610; 85651; 86140; 86850; 96365; 96375; 99285; C9803; G0328; J2405; P9016; Q9967; U0003; U0005

== ENCOUNTER 2021-10-04 17:30 | Emergency (ER) | payer OTHER, SELFPAY ==
[2021-10-04 17:23] VITALS: BP 104/84; PULSE 134; RESP 22; TEMP 34.4; O2SAT 90; BMI 31.2
[2021-10-04 17:25] VITALS: BMI 27.4
--- NOTE | 2021-10-04 17:26 | CT_ITS ---
PROCEDURE INFORMATION: Exam: CT Head Without Contrast Exam date and time: 10/04/2021 5:22 PM Age: 80 years old Clinical indication: Altered mental status/memory loss; Additional info: Weakness TECHNIQUE: Imaging protocol: Computed tomography of the head without contrast. Radiation optimization: All CT scans at this facility use at least one of these dose optimization techniques: automated exposure control; mA and/or kV adjustment per patient size (includes targeted exams where dose is matched to clinical indication); or iterative reconstruction. Other technique: STROKE PROTOCOL was implemented. COMPARISON: HEADWO CT head/brain wo con 12/24/2017 6:23 PM FINDINGS: Brain: There is volume loss. No acute infarct. No hemorrhage or extra-axial collection. No mass. Cerebral ventricles: There is no hydrocephalus. Paranasal sinuses: Visualized sinuses are unremarkable. No fluid levels. Mastoid air cells: Visualized mastoid air cells are well aerated. Bones/joints: Unremarkable. No acute fracture. Soft tissues: Unremarkable. Other findings: There is motion artifact. IMPRESSION: No intracranial lesion or injury . ASSESSMENT: ASPECTS ([place] Stroke Program Early CT Score) is 10.
--- NOTE | 2021-10-04 17:34 | HMH.EDSYNC ---
ED Disposition Clinical Impression: Cancer, Syncope due to orthostatic hypotension, Septic shock, Anemia Pancreatic cancer Qualifiers: Pancreatic malignancy location: unspecified Qualified Code(s): C25.9 - Malignant neoplasm of pancreas, unspecified Disposition: Condition on Discharge: Referrals: Harinder Hearn MD [Primary Care Provider] - - Critical Care Critical Care Time: No Attestation: On , the high probability of a clinically significant, sudden or life threatening deterioration of the following system(s) required my full and direct attention, intervention and personal management. The time I documented below is in addition to time spent performing reported procedures but includes the following listed in this critical care notation. Medical Decision Making - Medical Records Medical records reviewed: Yes: I reviewed the patient's medical records. - Cory Inquiry Pt receiving controlled substance: No Vital Signs: 10/04/21 17:23 Temperature 94 F L Temperature Source Rectal Pulse Rate [Left Radial] 134 H Respiratory Rate 22 Blood Pressure [Left Arm] 104/84 L Blood Pressure Mean [Left Arm] 90 Blood Pressure Source [Left Arm] Automatic Cuff Blood Pressure Position [Left Arm] Supine 02 Sat by Pulse Oximetry 90 L Oxygen Delivery Method Nasal Cannula Oxygen Flow Rate (LPM) 2 - Lab Data Lab results reviewed: Yes: I reviewed the patient's lab results. Lab Results 10/04/21 17:46: WBC 20.6 H*, RBC 2.12 L, Hgb 7.5 L, Hct 23.2 L, MCV 109.1 H, MCH 35.2 H, MCHC 32.3, RDW 20.8 H, Plt Count 673 H, MPV 9.6, Neut % (Auto) 92.9 H, Lymph % (Auto) 4.0 L, [place] % (Auto) 2.4, Eos % (Auto) 0.1, Baso % (Auto) 0.7, Neut # (Auto) 19.1 H, Lymph # (Auto) 0.8, Bea[place]gard # (Auto) 0.5, Eos # (Auto) 0.0, Baso # (Auto) 0.1, Total Counted 100, Neutrophils % (Manual) 88 H, Lymphocytes % (Manual) 7 L, Monocytes % (Manual) 5, Platelet Estimate Marked increase, Anisocytosis 3+, Macrocytosis 2+, Rouleaux 2+ 10/04/21 17:46: Sodium 133 L, Potassium 3.9, Chloride 99, Carbon Dioxide 7 L*, Anion Gap 30.9 H, BUN 72 H, Creatinine 1.50 H, Estimated Creat Clear 33, Estimated GFR 33 L, Est GFR ( Amer) 41 L, Glucose 194 H, Calcium 8.8, Total Bilirubin 22.7 H* D, AST 564 H*, ALT 130 H, Alkaline Phosphatase 1455 H, Total Protein 6.3, Albumin 2.8 L, Globulin 3.5 H, Albumin/Globulin Ratio 0.8 L, Lipase 60 10/04/21 18:11: PT 90.0 H, INR 8.00 H 10/04/21 18:16: POC Glucose 160 H Result diagrams: 10/04/21 17:46 10/04/21 17:46 Orders (Tests/Meds): ED MEDICATIONS Generic Name Dose Route Start Last Admin Trade Name Freq PRN Reason Stop Dose Admin Sodium Chloride 1,000 mls @ 999 mls/hr 10/04/21 18:00 Sod Chlor 0.9% 1000ml Bag IV 10/04/21 19:00 .Q1H1M [facility] ORDERS Category Date Time Status Ammonia Stat Lab 10/04/21 17:46 Received Lactic Acid Stat Lab 10/04/21 18:11 Received Urinalysis-Acute [Urinalysis and Microscopic] Stat Lab 10/04/21 17:52 Received - CT Data CT Scan: Head Time Received: 17:[address] Reviewed: Yes: I discussed the CT results w/the radiologist, I have viewed the radiologist's interpretation Preliminary Findings: Normal/NAD - ECG Data Tracing #1 I reviewed this ECG and interpreted as documented below: The patient is EKG was done at 1734. It shows a sinus tachycardia with a ventricular rate of 130 bpm. Otherwise there are no signs of ischemia and/or dysrhythmia. Mild ST depression which is most likely rate related. Arrhythmias present: sinus tach - Reevaluation(s) Time: 18:25 Reevaluation #1: Family and I were discussing comfort measures/DNR. The family expressed that the patient did not want to be resuscitated. That essentially she was a DNR. At that time the patient started becoming bradycardic on the monitor. She became apneic. A pulse was no longer palpable. She was pronounced by me at 5:25 PM. The patient's family was at the bedside. Syncope HPI - Genera
--- NOTE | 2021-10-04 17:37 | ECG_ITS ---
APPROVED REPORT Exam: Resting ECG HR:130 bpm ECG Measurements Heart Rate 130 AXES CA 98 P 111 QRSd 77 QRS 72 QT 314 T 61 QTc 391 Conclusion SINUS TACHYCARDIA WITH SHORT CA INTERVAL LOW QRS VOLTAGE IN EXTREMITY LEADS [QRS DEFLECTION < 0.5 mV IN LIMB LEADS] MODERATE ST DEPRESSION [0.05+ mV ST DEPRESSION] ABNORMAL ECG UNCONFIRMED REPORT Electronically signed by : Asif Puentes MD 10/05/2021 08:21:24
--- NOTE | 2021-10-04 17:37 | PC.NURSE ---
RN and TECH @ [facility] obtaining vitals and labs, and assessing pt. FAmily @ [facility]
[2021-10-04 17:52] LABS: Basophils # 0.1 K/mm3 (0-0.2); Basophils % 0.7 % (0.1-2.0); Eosinophils % 0.1 % (0.1-12.0); Hematocrit 23.2 % (37.0-47.0); Hemoglobin 7.5 g/dL (12.2-16.2); Lymphocytes # 0.8 K/mm3 (0.7-4.5); Mean Corpuscular HGB Conc 32.3 g/dL (31.8-35.4); Mean Corpuscular Hemoglobin 35.2 pg (27.0-31.2); Mean Corpuscular Volume 109.1 fl (81-99); Mean Platelet Volume 9.6 fl (7.4-10.4); Monocytes # 0.5 K/mm3 (0.1-1.0); Monocytes % 2.4 % (1.7-9.3); Neutrophils # 19.1 K/mm3 (1.8-7.8); Neutrophils % 92.9 % (37.0-80.0); Platelet Count 673 K/mm3 (142-424); Red Blood Count 2.12 M/mm3 (4.20-5.40); Red Cell Distribution Width 20.8 % (11.5-17.5); White Blood Count 20.6 K/mm3 (4.8-10.8)
[2021-10-04 18:25] LABS: POC Glucose,Bedside 160 (70-110)
[2021-10-04 18:28] LABS: Chloride 99 mmol/L (98-107); MANUAL DIFFERENTIAL MANUAL DIFFERENTIAL (MANUAL DIFF); Potassium 3.9 mmoL/L (3.5-5.1); Sodium 133 mmol/L (136-145)
[2021-10-04 18:30] LABS: Alanine Aminotransferase 130 U/L (12-78); Alkaline Phosphatase 1455 U/L (38-126); Bilirubin,Total 22.7 mg/dl (0.2-1.3); Blood Urea Nitrogen 72 mg/dl (7-17); Creatinine Clearance Estimated 33 mL/min (50-200); Estimated Glomerular Filt Rate 33 ml/min (>60); GFR (African American) 41 ML/MIN (>60)
[2021-10-04 18:31] LABS: Albumin Level 2.8 g/dl (3.5-5.0); Albumin/Globulin Ratio 0.8 (1.1-1.8); Anion Gap 30.9 mEq/L (5-15); Calcium 8.8 mg/dl (8.4-10.2); Globulin 3.5 g/dL (1.3-3.2); Glucose 194 mg/dl (74-100); Lipase 60 U/L (23-300); Total Protein,Serum 6.3 g/dl (6.3-8.2)
[2021-10-04 18:33] LABS: Carbon Dioxide 7 mmol/L (22.0-30.0)
[2021-10-04 18:37] LABS: Aspartate Amino Transferase 564 U/L (14-36)
--- NOTE | 2021-10-04 18:47 | PC.NURSE ---
I was notified that pt's TOD was 182; I called [facility] at 1841 to inform them of patients passing. I spoke with Pavan Betancourt, case # is [id number] and pt was ruled out for donation.
[2021-10-04 18:52] LABS: Anisocytosis 3+; Lymphocytes % 7 % (10-50); Monocytes % 5 % (2-9); Neutrophils % 88 % (42-76); Platelet Estimate Marked Increase; Total Cells Counted 100
[2021-10-04 18:53] LABS: Macrocytosis 2+; Rouleaux 2+
--- NOTE | 2021-10-04 19:00 | PC.NURSE ---
[facility] CALLED @ 449
[2021-10-04 19:02] LABS: Microscopic, Urine URINE MICROSCOPIC (MICROSCOPIC)
[2021-10-04 19:19] LABS: Appearance,Urine CLOUDY (Clear); Blood, Urine TRACE-I (Negative); Color,Urine AMBER (Yellow); Glucose,Urine (UA) TRACE (Negative); Ketones,Urine TRACE (Negative); Leukocyte Esterase,Urine TRACE (Negative); Nitrate,Urine POSITIVE (Negative); PH,Urine 5.5 (5.0-8.5); Protein,Urine 1+ (Negative); Specific Gravity, Urine 1.025 (1.005-1.030)
[2021-10-04 19:22] LABS: Bilirubin,Urine 3+ (Negative)
[2021-10-04 19:22] LABS: Ammonia 268 umol/L (9-30)
[2021-10-04 19:24] LABS: Squamous Epithelial Cell,Urine 50-100 #/hpf (0-5)
[2021-10-04 19:31] LABS: Lactic Acid 14.3 mmol/L (0.7-2.1)
[2021-10-04 19:41] VITALS: BP 0/0; PULSE 0; RESP 0; TEMP -17.7; TEMP 0; O2SAT 0
== END 2021-10-04 19:50 | disposition expired ==
PROVIDERS: Emergency Provider Emergency Medicine; PCP Emergency Medicine
DX: A41.9 Sepsis, unspecified organism; I95.1 Orthostatic hypotension; C25.9 Malignant neoplasm of pancreas, unspecified; D64.9 Anemia, unspecified; I48.91 Unspecified atrial fibrillation; J44.9 Chronic obstructive pulmonary disease, unspecified; I25.10 Atherosclerotic heart disease of native coronary artery without angina pectoris; E78.5 Hyperlipidemia, unspecified; I10 Essential (primary) hypertension; M19.90 Unspecified osteoarthritis, unspecified site; E03.9 Hypothyroidism, unspecified; Z88.1 Allergy status to other antibiotic agents; Z88.2 Allergy status to sulfonamides; Z88.8 Allergy status to other drugs, medicaments and biological substances; Z87.891 Personal history of nicotine dependence; R55 Syncope and collapse
CPT/HCPCS: 70450; 80053; 81001; 82140; 82962; 83605; 83690; 85007; 85025; 85610; 93005; 99284